=== PATIENT | male | born 1985 | race Caucasian/White ===

== ENCOUNTER 2018-07-29 23:32 | Inpatient (IN) | payer OTHER ==
--- NOTE | 2018-07-29 23:50 | HP ---
CIWA Score Nausea/Vomitin-No Nausea/No Vomiting Muscle Tremors: None Anxiety: 4-Mod. Anxious/Guarded Agitation: 1-Slight > Activity Paroxysmal Sweats: No Perspiration Orientation: 2-Disoriented Date<2 days Tacttile Disturbances: 2-Mild Itch/Numbness/Burn Auditory Disturbances: 0-None Visual Disturbances: 3-Moderate Sensitivity Headache: 0-None Present CIWA-Ar Total Score: 12 - Admission Criteria OASAS Guidelines: Admission for Medically Managed Detox: Requires at least one of the followin. CIWA greater than 12 2. Seizures within the past 24 hours 3. Delirium tremens within the past 24 hours 4. Hallucinations within the past 24 hours 5. Acute intervention needed for co occurring medical disorder 6. Acute intervention needed for co occurring psychiatric disorder 7. Severe withdrawal that cannot be handled at a lower level of care (continued vomiting, continued diarrhea, abnormal vital signs) requiring intravenous medication and/or fluids 8. Patient presents the following: CIWA greater than 12, Acute intervention needed for co-occurring med or psych disorder Admission Criteria Met: Admission criteria met Admission ROS [facility] Chief Complaint: c/o withdrawal sx's. seeking detox Allergies/Adverse Reactions: Allergies Allergy/AdvReac Type Severity Reaction Status Date / Time No Known Allergies Allergy Verified 07/29/18 23:45 History of Present Illness: 32 Y.O. MALE WITH POLY SYBSTANCE ABUSE INCLUDING BENZO ON METHADONE MAINTENANCE HERE FOR DETOX. CLIENT WAS REFERRED BY HIS METHADONE PROGRAM ESTRELLITA ALMODOVAR. HE REPORTS HE IS ON METHADONE 130 MG WITH BLOCKING DOSE OF 150 MG. LDM TODAY ALL PENDING VERIFICATION. THIS IS HIS FIRST ADMISSION. REPORTS LAST DETOX ANY YEARS AGO. PRESENTS TODAY WITH C/O WORSENING WITHDRAWAL SX'S. CIWA 12. DENIES ANY SIGNIFICANT PERIOD OF CLEAN TIME. PMHX- HEPC NO TXMENT, ANXIETY. DENIES SI/HI, AVH. REPORTS HX/O SEIZURE R/T BENZO WITHDRAWAL LAST EPISODE " YEARS AGO". LIVES WITH GIRLFRIEND, UNEMPLOYED, OPEN CASE Exam Limitations: No Limitations - Ebola screening Have you traveled outside of the country in the last 21 days: No (N) Have you had contact with anyone from an Ebola affected area: No Do you have a fever: No - Review of Systems Constitutional: Loss of Appetite, Changes in sleep EENT: reports: Dental Problems (MISSING TEETH) Respiratory: reports: No Symptoms reported Cardiac: reports: No Symptoms Reported GI: reports: Nausea, Poor Appetite, Poor Fluid Intake : reports: No Symptoms Reported Musculoskeletal: reports: Back Pain, Joint Pain Integumentary: reports: Sweating Neuro: reports: Seizure Endocrine: reports: No Symptoms Reported Hematology: reports: No Symptoms Reported Psychiatric: reports: Anxious, Depressed, other (A/O X2) Other Systems: Reviewed and Negative Patient History - Patient Medical History Hx Anemia: No Hx Asthma: No Hx Chronic Obstructive Pulmonary Disease (COPD): No Hx Cancer: No Hx Cardiac Disorders: No Hx Congestive Heart Failure: No Hx Hypertension: No Hx Hypercholesterolemia: No Hx Pacemaker: No HX Cerebrovascular Accident: No Hx Seizures: Yes (R/T BENZO WITHDRAWAL) Hx Dementia: No Hx Diabetes: No Hx Gastrointestinal Disorders: No Hx Liver Disease: Yes (HEP C) Hx Genitourinary Disorders: No Hx Sexually Transmitted Disorders: No Hx Renal Disease (ESRD): No Hx Thyroid Disease: No Hx Human Immunodeficiency Virus (HIV): No Hx Hepatitis C: Yes Hx Depression: No Hx Suicide Attempt: No Hx Bipolar Disorder: No Hx Schizophrenia: No Other Medical History: ANXIETY - Patient Surgical History Past Surgical History: Yes Hx Appendectomy: Yes Anesthesia Reaction: No - PPD History Previous Implant?: Yes Documented Results: Negative w/o proof Implanted On Prior R Admission?: No PPD to be Administered?: Yes - Smoking Cessation Smoking history: Current every day smoker Have you smoked in the past 12 months: Yes Aproximately how many cigarettes per day: 10 Cigars Per Day: 0 Hx Chewing Tobacco Use: No Initiated information on smoking cessation: Yes 'Breaking Loose' booklet given: 07/29/18 - Substance & Tx. History Hx Alcohol Use: Yes Hx Substance Use: Yes Substance Use Type: Alcohol, Cocaine, Heroin, Marijuana, Prescribed (METHADONE) , Tranquilizers (XANAX) Hx Substance Use Treatment: Yes ([facility]) - Substances Abused VODKA/LIQUOR/BEER Route: Oral Frequency: Daily Amount used: /-BEERS Age of first use: 14 Date of Last Use: 07/29/18 XANAX Route: Oral Frequency: Daily Amount used: 10 MG Age of first use: 17 Date of Last Use: 07/28/18 THC Route: Smoking Frequency: Daily Amount used: 3 BLUNTS Age of first use: 12 Date of Last Use: 07/28/18 HEROIN Route: Injection Frequency: 1-3 times last 30 days Amount used: 1 GM Age of first use: 24 Date of Last Use: 07/28/18 COCAINE Route: Injection Frequency: Daily Amount used: 3 GMS Age of first use: 16 Date of Last Use: 07/29/18 Family Disease History - Family Disease History Family Disease History: CA: Father (DRUG/ALCOHOL/ LUNG-), Other: Father , Mother (DRUGL ALCOHOL/ ANXIETY), Sister (DRUG/ALCOHOL) Admission Physical Exam [facility] - Physical General Appearance: Yes: Appropriately Dressed, Anxious HEENTM: Yes: EOMI, Normocephalic, Normal Voice, FARIDA, Pharynx Normal, Other ( POOR DENTITION MISSING TEETH) Respiratory: Yes: Chest Non-Tender, Lungs Clear, Normal Breath Sounds, No Respiratory Distress, No Accessory Muscle Use Neck: Yes: No masses,lesions,Nodules, Supple, Trachea in good position Breast: Yes: Breast Exam Deferred Cardiology: Yes: Regular Rhythm, Regular Rate, S1, S2 Abdominal: Yes: Non Tender, Soft, Increased Bowel Sounds Genitourinary: Yes: Within Normal Limits (NO C/O) Back: Yes: Normal Inspection Musculoskeletal: Yes: full range of Motion, Gait Steady Extremities: Yes: Normal Capillary Refill, Normal Range of Motion, Non-Tender Neurological: Yes: Alert, Motor Strength 5/5, Confused (ABOUT DATE) Integumentary: Yes: Warm Lymphatic: Yes: Within Normal Limits - Diagnostic (1) Sedative, hypnotic or anxiolytic dependence with withdrawal, uncomplicated Current Visit: Yes Status: Acute (2) Alcohol dependence with uncomplicated withdrawal Current Visit: Yes Status: Acute (3) Cannabis abuse, uncomplicated Current Visit: Yes Status: Acute (4) Cocaine abuse, uncomplicated Current Visit: Yes Status: Acute (5) Uncomplicated opioid abuse Current Visit: Yes Status: Acute (6) Methadone maintenance therapy patient Current Visit: Yes Status: Chronic (7) Nicotine dependence Current Visit: Yes Status: Chronic Qualifiers: Nicotine product type: cigarettes Substance use status: uncomplicated Qualified Code(s): F17.210 - Nicotine dependence, cigarettes, uncomplicated (8) Substance induced mood disorder Current Visit: Yes Status: Chronic (9) Insomnia Current Visit: Yes Status: Chronic Qualifiers: Insomnia type: drug-induced Qualified Code(s): F19.982 - Other psychoactive substance use, unspecified with psychoactive substance-induced sleep disorder Cleared for Admission S - Detox or Rehab [facility] Level of Care: Medically Managed Detox Regimen/Protocol: Valium Claeared for Rehab Admission: No BHS Breath Alcohol Content Breath Alcohol Content: 0 Vital Signs - Vital Signs Vital Signs Refused: No Temperature: 96.8 F Temperature Source: Oral Pulse Rate: 64 Respiratory Rate: 18 Blood Pressure: 88/53 BP Location: Left Arm Blood Pressure Position: Sitting - Height Height: 5 ft 8 in - Weight Weight: 68.946 kg Weight Measurement Method: Standing Scale Body Mass Index (BMI): 23.1 - Bowel Function Bowel Movement: No Urine Drug Screen - Test Device Lot Number: [id number] Expiration Date: 03/09/20 - Control Is Test Valid: Yes - Results Drug Screen Negative: No Urine Drug Screen Results: THC-Marijuana, DONOVAN-Cocaine, OPI-Opiates, BZO- Benzodiazepines, MTD-Methadone, FEN-Fentanyl Inpatient Rehab Admission - Rehab Decision to Admit Inpatient rehab admission?: No
[2018-07-30 00:02] VITALS: BMI 23.1
[2018-07-30] MEDS ORDERED: MENTHOL/PHENOL 1 EACH UD MM PRN (00:06)
[2018-07-30] MEDS ORDERED: diazePAM 5 MG TABLET PO ONE (00:06)
[2018-07-30] MEDS ORDERED: MAGNESIUM HYDROX 2400MG/30ML ORAL SUSPENSION 30 ML CUP PO PRN (00:06)
[2018-07-30] MEDS ORDERED: IBUPROFEN 400 MG TABLET (FP) PO PRN (00:06)
[2018-07-30] MEDS ORDERED: LOPERAMIDE HCL 2 MG CAPSULE PO PRN (00:06)
[2018-07-30] MEDS ORDERED: MAGNESIUM CITRATE 300 ML BOTTLE PO PRN (00:06)
[2018-07-30] MEDS ORDERED: MAG HYDROX/AL HYDROX/SIMETH 30 ML UNIT-DOSE CUP PO PRN (00:06)
[2018-07-30] MEDS ORDERED: guaiFENesin/D-METHORPHAN HB 10 ML UNIT-DOSE CUPS PO PRN (00:06)
[2018-07-30] MEDS ORDERED: P-EPHED 60MG/TRIPROLIDI 2.5MG TABLET PO PRN (00:06)
[2018-07-30] MEDS ORDERED: ACETAMINOPHEN 325 MG TABLET (FP) PO PRN (00:06)
[2018-07-30] MEDS: diazePAM 5 MG TABLET PO SCH ×3 (05:36→22:09)
[2018-07-30] MEDS ORDERED: METHADONE HCL 10 MG TABLET PO ONE (09:36)
[2018-07-30] MEDS ORDERED: METHADONE HCL 40 MG DISPERSABLE TABLET ONE (09:59)
[2018-07-30] MEDS ORDERED: METHADONE HCL 10 MG TABLET ONE (09:59)
[2018-07-30] MEDS ORDERED: METHADONE 120 MG, METHADONE 10 MG PO ONE (10:00)
[2018-07-30] MEDS ORDERED: NICOTINE 14 MG/24 HOURS TOPICAL PATCH TD SCH (10:00)
[2018-07-30] MEDS: diazePAM 5 MG TABLET PO PRN (10:09)
[2018-07-30] MEDS: PRENATAL VITAMINS W/ FOLIC ACID TABLET (FP) PO SCH (10:09)
[2018-07-30] MEDS: NICOTINE POLACRILEX 2 MG GUM BC PRN ×5 (10:12→22:10)
--- NOTE | 2018-07-30 10:57 | PN ---
S CIWA - CIWA Score Nausea/Vomitin-No Nausea/No Vomiting Muscle Tremors: 3 Anxiety: 4-Mod. Anxious/Guarded Agitation: 3 Paroxysmal Sweats: 3 Orientation: 0-Oriented Tacttile Disturbances: 0-None Auditory Disturbances: 0-None Visual Disturbances: 0-None Headache: 0-None Present CIWA-Ar Total Score: 13 BHS Progress Note (SOAP) Subjective: sweats irritable body aches agitation interrupted sleep Objective: 07/30/18 10:43 Vital Signs Temperature 97.5 F L 07/30/18 09:21 Pulse Rate 70 07/30/18 09:21 Respiratory Rate 16 07/30/18 09:21 Blood Pressure 117/68 07/30/18 09:21 O2 Sat by Pulse Oximetry (%) labs pending aaox3 ambulating no acute distress Assessment: 07/30/18 10:43 withdrawal sx Plan: continue detox increase fluids
[2018-07-30] MEDS: NICOTINE 21 MG/24 HOURS TOPICAL PATCH TD SCH (18:38)
[2018-07-30] MEDS: MELATONIN 5 MG TABLETS PO PRN (22:09)
[2018-07-30] MEDS: THIAMINE HCL 100 MG TABLET (FP) PO SCH (22:09)
[2018-07-31] MEDS ORDERED: METHADONE HCL 40 MG DISPERSABLE TABLET ONE (05:03)
[2018-07-31] MEDS ORDERED: METHADONE HCL 10 MG TABLET ONE (05:04)
[2018-07-31] MEDS: diazePAM 5 MG TABLET PO SCH ×3 (05:41→22:59)
[2018-07-31] MEDS ORDERED: METHADONE 120 MG, METHADONE 20 MG PO ONE (06:00)
[2018-07-31] MEDS ORDERED: METHADONE HCL 40 MG DISPERSABLE TABLET PO ONE (06:00)
[2018-07-31] MEDS: NICOTINE POLACRILEX 2 MG GUM BC PRN ×2 (07:11→21:04)
[2018-07-31] MEDS: NICOTINE 21 MG/24 HOURS TOPICAL PATCH TD SCH (11:02)
[2018-07-31] MEDS: PRENATAL VITAMINS W/ FOLIC ACID TABLET (FP) PO SCH (11:02)
[2018-07-31 11:03] LABS: HEMOGLOBIN 13.4 GM/dL (11.7-16.9); MCH 29.8 pg (25.7-33.7); MCHC 33.6 g/dl (32.0-35.9); MEAN CELL VOLUME 88.7 fl (80-96); MEAN PLT VOLUME 8.5 fl (7.5-11.1); PLATELET COUNT 291 K/MM3 (134-434); RBC 4.51 M/mm3 (4.00-5.60); RDW 13.5 % (11.9-15.9); WHITE BLOOD COUNT 10.2 K/mm3 (4.0-10.0)
[2018-07-31 11:38] LABS: ALBUMIN 3.4 g/dl (3.4-5.0); ALK PHOS 60 U/L (45-117); ANION GAP 3 MMOL/L (8-16); BILIRUBIN,TOTAL 0.2 mg/dL (0.2-1); BLOOD UREA NITROGEN 9 mg/dL (7-18); CHLORIDE 103 mmol/L (98-107); CO2 32 mmol/L (21-32); CREATININE 0.8 mg/dL (0.55-1.3); GLUCOSE,RANDOM 78 mg/dL (74-106); POTASSIUM 4.5 mmol/L (3.5-5.1); SGOT/AST 28 U/L (15-37); SGPT/ALT 45 U/L (13-61); SODIUM 138 mmol/L (136-145); TOT PROT 6.3 g/dl (6.4-8.2)
--- NOTE | 2018-07-31 15:00 | PN ---
S CIWA - CIWA Score Nausea/Vomitin-No Nausea/No Vomiting Muscle Tremors: 3 Anxiety: 3 Agitation: 2 Paroxysmal Sweats: No Perspiration Orientation: 0-Oriented Tacttile Disturbances: 2-Mild Itch/Numbness/Burn Auditory Disturbances: 0-None Visual Disturbances: 2-Mild Sensitivity Headache: 0-None Present CIWA-Ar Total Score: 12 BHS Progress Note (SOAP) Subjective: Fatigue, Tremors, Body Aches. Objective: PATIENT A & O X 2 (UNCERTAIN ABOUT CURRENT DAY / DATE). PATIENT OBSERVED AMBULATING ON UNIT. IN NO ACUTE DISTRESS. 07/31/18 15:00 Vital Signs Temperature 99.1 F 07/31/18 09:21 Pulse Rate 61 07/31/18 09:21 Respiratory Rate 16 07/31/18 09:21 Blood Pressure 124/72 07/31/18 09:21 O2 Sat by Pulse Oximetry (%) Laboratory Tests 07/31/18 07/31/18 07/31/18 06:00 08:38 08:38 WBC 10.2 H RBC 4.51 Hgb 13.4 Hct 40.0 MCV 88.7 MCH 29.8 MCHC 33.6 RDW 13.5 Plt Count 291 MPV 8.5 Sodium 138 Potassium 4.5 Chloride 103 Carbon Dioxide 32 Anion Gap 3 L BUN 9 Creatinine 0.8 Creat Clearance w eGFR > 60 Random Glucose 78 Calcium 9.0 Total Bilirubin 0.2 AST 28 ALT 45 Alkaline Phosphatase 60 Total Protein 6.3 L Albumin 3.4 RPR Titer Nonreactive LABS NOTED. UA RESULTS PENDING. Assessment: 07/31/18 15:00 WITHDRAWAL SYMPTOMS. Plan: CONTINUE DETOX. INCREASE DAILY PO FLUID INTAKE. ENCOURAGE AMBULATION.
[2018-07-31 16:59] LABS: URINE APPEARANCE CLEAR; URINE BILIRUBIN NEGATIVE (<2.0 mg/dL); URINE COLOR LTYELLOW; URINE GLUCOSE (UA) NEGATIVE (NEGATIVE); URINE KETONE NEGATIVE (NEGATIVE); URINE LEUK ESTERASE NEGATIVE (NEGATIVE); URINE NITRITE NEGATIVE (NEGATIVE); URINE PROTEIN NEGATIVE (NEGATIVE); URINE UROBILINOGEN NEGATIVE mg/dL (0.2-1.0)
[2018-07-31] MEDS: diazePAM 5 MG TABLET PO PRN (18:16)
[2018-07-31] MEDS: THIAMINE HCL 100 MG TABLET (FP) PO SCH (22:59)
[2018-08-01] MEDS ORDERED: METHADONE HCL 40 MG DISPERSABLE TABLET ONE (04:42)
[2018-08-01] MEDS ORDERED: METHADONE HCL 10 MG TABLET ONE (04:42)
[2018-08-01] MEDS: METHADONE 120 MG, METHADONE 30 MG PO SCH (05:42)
[2018-08-01] MEDS: diazePAM 5 MG TABLET PO PRN ×2 (05:45→17:32)
[2018-08-01] MEDS ORDERED: METHADONE HCL 10 MG TABLET PO SCH (06:00)
[2018-08-01] MEDS: NICOTINE 21 MG/24 HOURS TOPICAL PATCH TD SCH (10:31)
[2018-08-01] MEDS: NICOTINE POLACRILEX 2 MG GUM BC PRN ×3 (10:31→21:33)
[2018-08-01] MEDS: PRENATAL VITAMINS W/ FOLIC ACID TABLET (FP) PO SCH (10:31)
[2018-08-01] MEDS: diazePAM 5 MG TABLET PO SCH ×2 (10:34→22:13)
--- NOTE | 2018-08-01 13:23 | PN ---
BHS Progress Note (SOAP) Subjective: sweats Objective: 08/01/18 13:22 Vital Signs Temperature 97.9 F 08/01/18 08:52 Pulse Rate 62 08/01/18 08:52 Respiratory Rate 18 08/01/18 08:52 Blood Pressure 125/64 08/01/18 08:52 O2 Sat by Pulse Oximetry (%) Laboratory Tests 07/31/18 07/31/18 07/31/18 06:00 08:38 08:38 WBC 10.2 H RBC 4.51 Hgb 13.4 Hct 40.0 MCV 88.7 MCH 29.8 MCHC 33.6 RDW 13.5 Plt Count 291 MPV 8.5 Sodium 138 Potassium 4.5 Chloride 103 Carbon Dioxide 32 Anion Gap 3 L BUN 9 Creatinine 0.8 Creat Clearance w eGFR > 60 Random Glucose 78 Calcium 9.0 Total Bilirubin 0.2 AST 28 ALT 45 Alkaline Phosphatase 60 Total Protein 6.3 L Albumin 3.4 Urine Color Urine Appearance Urine pH Ur Specific [place] Urine Protein Urine Glucose (UA) Urine Ketones Urine Blood Urine Nitrite Urine Bilirubin Urine Urobilinogen Ur Leukocyte Esterase RPR Titer Nonreactive 07/31/18 11:15 WBC RBC Hgb Hct MCV MCH MCHC RDW Plt Count MPV Sodium Potassium Chloride Carbon Dioxide Anion Gap BUN Creatinine Creat Clearance w eGFR Random Glucose Calcium Total Bilirubin AST ALT Alkaline Phosphatase Total Protein Albumin Urine Color Ltyellow Urine Appearance Clear Urine pH 5.0 Ur Specific [place] 1.015 Urine Protein Negative Urine Glucose (UA) Negative Urine Ketones Negative Urine Blood Negative Urine Nitrite Negative Urine Bilirubin Negative Urine Urobilinogen Negative Ur Leukocyte Esterase Negative RPR Titer pt aox3 , in nad ambulating Assessment: 08/01/18 13:23 withdrawal sx's Plan: cont. detox increase fluids d/c in am.
[2018-08-01] MEDS: THIAMINE HCL 100 MG TABLET (FP) PO SCH (22:14)
[2018-08-01] MEDS: MELATONIN 5 MG TABLETS PO PRN (22:14)
[2018-08-02] MEDS: METHADONE 120 MG, METHADONE 30 MG PO SCH (05:59)
[2018-08-02] MEDS ORDERED: METHADONE HCL 10 MG TABLET ONE (05:59)
[2018-08-02] MEDS ORDERED: METHADONE HCL 40 MG DISPERSABLE TABLET ONE (05:59)
[2018-08-02] MEDS: NICOTINE POLACRILEX 2 MG GUM BC PRN (06:04)
[2018-08-02 06:36] VITALS: BP 116/72; PULSE 53; TEMP 96.4
--- NOTE | 2018-08-02 15:59 | DS ---
[facility] Detox Discharge Summary Admission Date: 07/30/18 Discharge Date: 08/02/18 - History Present History: Alcohol Dependence, Sedative Dependence Additional Comments: PT WAS NOT ENCOUNTERED BY THIS RN CLINICAL DOCUMENTATION SPECIALIST BEFORE EXITING. Pertinent Past History: SEIZURE DISORDER R/T BENZO HEP C - Physical Exam Results Vital Signs: Vital Signs Temperature 96.4 F L 08/02/18 06:00 Pulse Rate 53 L 08/02/18 06:00 Respiratory Rate 18 08/02/18 06:00 Blood Pressure 116/72 08/02/18 06:00 O2 Sat by Pulse Oximetry (%) Pertinent Admission Physical Exam Findings: WITHDRAWAL SX Laboratory Tests 07/31/18 07/31/18 07/31/18 06:00 08:38 08:38 WBC 10.2 H RBC 4.51 Hgb 13.4 Hct 40.0 MCV 88.7 MCH 29.8 MCHC 33.6 RDW 13.5 Plt Count 291 MPV 8.5 Sodium 138 Potassium 4.5 Chloride 103 Carbon Dioxide 32 Anion Gap 3 L BUN 9 Creatinine 0.8 Creat Clearance w eGFR > 60 Random Glucose 78 Calcium 9.0 Total Bilirubin 0.2 AST 28 ALT 45 Alkaline Phosphatase 60 Total Protein 6.3 L Albumin 3.4 Urine Color Urine Appearance Urine pH Ur Specific [place] Urine Protein Urine Glucose (UA) Urine Ketones Urine Blood Urine Nitrite Urine Bilirubin Urine Urobilinogen Ur Leukocyte Esterase RPR Titer Nonreactive 07/31/18 11:15 WBC RBC Hgb Hct MCV MCH MCHC RDW Plt Count MPV Sodium Potassium Chloride Carbon Dioxide Anion Gap BUN Creatinine Creat Clearance w eGFR Random Glucose Calcium Total Bilirubin AST ALT Alkaline Phosphatase Total Protein Albumin Urine Color Ltyellow Urine Appearance Clear Urine pH 5.0 Ur Specific [place] 1.015 Urine Protein Negative Urine Glucose (UA) Negative Urine Ketones Negative Urine Blood Negative Urine Nitrite Negative Urine Bilirubin Negative Urine Urobilinogen Negative Ur Leukocyte Esterase Negative RPR Titer - Treatment Hospital Course: Detox Protocol Followed, Detoxed Safely, Responded well, Discharged Condition Good (PER NURSES NOTES) - Diagnosis (1) Alcohol dependence with uncomplicated withdrawal Status: Acute (2) Cannabis abuse, uncomplicated Status: Acute (3) Cocaine abuse, uncomplicated Status: Acute (4) Sedative, hypnotic or anxiolytic dependence with withdrawal, uncomplicated Status: Acute (5) Uncomplicated opioid abuse Status: Acute (6) Methadone maintenance therapy patient Status: Chronic (7) Nicotine dependence Status: Chronic Qualifiers: Nicotine product type: cigarettes Substance use status: in withdrawal Qualified Code(s): F17.213 - Nicotine dependence, cigarettes, with withdrawal - AMA Did Patient Leave Against Medical Advice: No
[2018-08-03] MEDS ORDERED: diazePAM 5 MG TABLET PO SCH (10:00)
== END 2018-08-02 08:38 | disposition home or self-care (01) | DRG 773 ==
LOC: YASAS 23:32 → Y6N 07-30 00:07
PROVIDERS: ADMIT Surgery; ATTEND Surgery
PROC: HZ2ZZZZ Detoxification Services for Substance Abuse Treatment (ICD-10-PCS; principal; 2018-07-30)
DX: F10.230 Alcohol dependence with withdrawal, uncomplicated (principal); F11.20 Opioid dependence, uncomplicated; F13.230 Sedative, hypnotic or anxiolytic dependence with withdrawal, uncomplicated; F14.10 Cocaine abuse, uncomplicated; F12.10 Cannabis abuse, uncomplicated; F17.210 Nicotine dependence, cigarettes, uncomplicated; F19.24 Other psychoactive substance dependence with psychoactive substance-induced mood disorder; F19.282 Other psychoactive substance dependence with psychoactive substance-induced sleep disorder; B18.2 Chronic viral hepatitis C; Z86.69 Personal history of other diseases of the nervous system and sense organs
CPT/HCPCS: 36415; 80053; 81003; 85027; 86593

== ENCOUNTER 2021-09-13 17:16 | Inpatient (IN) | payer OTHER ==
[2021-09-13 20:23] VITALS: BMI 24.7
[2021-09-13] MEDS ORDERED: ACETAMINOPHEN 325 MG TABLET (FP) PO PRN (23:28)
[2021-09-13] MEDS ORDERED: LOPERAMIDE HCL 2 MG CAPSULE PO PRN (23:28)
[2021-09-13] MEDS ORDERED: MAG HYDROX/AL HYDROX/SIMETH 30 ML UNIT-DOSE CUP PO PRN (23:28)
[2021-09-13] MEDS ORDERED: guaiFENesin 200 MG/10 ML 10 ML UNIT-DOSE CUPS PO PRN (23:28)
[2021-09-13] MEDS ORDERED: P-EPHED 60MG/TRIPROLIDI 2.5MG TABLET PO PRN (23:28)
[2021-09-13] MEDS ORDERED: MAGNESIUM CITRATE 300 ML BOTTLE PO PRN (23:28)
[2021-09-13] MEDS ORDERED: MAGNESIUM HYDROX 2400MG/30ML ORAL SUSPENSION 30 ML CUP PO PRN (23:28)
[2021-09-14] MEDS ORDERED: TUBERCULIN PPD 5 TU/0.1ML VIAL ID ONE ×2 (05:43→06:56)
[2021-09-14] MEDS: MELATONIN 5 MG TABLETS PO SCH ×2 (05:51→21:07)
[2021-09-14] MEDS ORDERED: methaDONE HCL 10 MG TABLET PO ONE (08:29)
[2021-09-14] MEDS ORDERED: methaDONE HCL 40 MG DISPERSABLE TABLET ONE (09:17)
[2021-09-14] MEDS ORDERED: methaDONE HCL 10 MG TABLET ONE (09:17)
[2021-09-14] MEDS: NICOTINE 14 MG/24 HOURS TOPICAL PATCH TD SCH (09:20)
[2021-09-14] MEDS: PRENATAL VITAMINS W/ FOLIC ACID TABLET (FP) PO SCH (09:20)
[2021-09-14 09:29] LABS: HEMATOCRIT 34.4 % (35.4-49); MCH 24.9 pg (25.7-33.7); MCHC 32.1 g/dl (32.0-35.9); MEAN CELL VOLUME 77.4 fl (80-96); MEAN PLT VOLUME 8.4 fl (7.5-11.1); PLATELET COUNT 230 10^3/uL (134-434); RBC 4.44 M/mm3 (4.00-5.60); WHITE BLOOD COUNT 7.4 K/mm3 (4.0-10.0)
[2021-09-14 09:40] LABS: ALBUMIN 2.8 g/dl (3.4-5.0); BILIRUBIN,TOTAL 0.2 mg/dL (0.2-1); TOT PROT 6.4 g/dl (6.4-8.2)
[2021-09-14 09:42] LABS: BLOOD UREA NITROGEN 15.2 mg/dL (7-18); CALCIUM 8.5 mg/dL (8.5-10.1)
[2021-09-14 09:45] LABS: CREATININE 0.8 mg/dL (0.55-1.3)
[2021-09-14] MEDS ORDERED: NICOTINE 10 MG CARTRIDGE (INHALER) IH SCH (14:00)
[2021-09-14] MEDS: THIAMINE HCL 100 MG TABLET (FP) PO SCH (21:07)
[2021-09-14] MEDS: NICOTINE POLACRILEX 2 MG GUM BC PRN (21:09)
[2021-09-15] MEDS ORDERED: methaDONE HCL 40 MG DISPERSABLE TABLET ONE (04:02)
[2021-09-15] MEDS ORDERED: methaDONE HCL 10 MG TABLET ONE (04:02)
[2021-09-15] MEDS ORDERED: methaDONE HCL 10 MG TABLET PO SCH (06:00)
[2021-09-15] MEDS: NICOTINE 14 MG/24 HOURS TOPICAL PATCH TD SCH (10:27)
[2021-09-15] MEDS: PRENATAL VITAMINS W/ FOLIC ACID TABLET (FP) PO SCH (10:27)
[2021-09-15] MEDS: MELATONIN 5 MG TABLETS PO SCH (21:19)
[2021-09-15] MEDS: THIAMINE HCL 100 MG TABLET (FP) PO SCH (21:19)
[2021-09-16] MEDS ORDERED: methaDONE HCL 10 MG TABLET ONE (04:12)
[2021-09-16] MEDS ORDERED: methaDONE HCL 40 MG DISPERSABLE TABLET ONE (04:12)
[2021-09-16] MEDS: PRENATAL VITAMINS W/ FOLIC ACID TABLET (FP) PO SCH (09:47)
[2021-09-16] MEDS: NICOTINE 14 MG/24 HOURS TOPICAL PATCH TD SCH (09:47)
[2021-09-16] MEDS: NICOTINE 10 MG CARTRIDGE (INHALER) IH PRN (09:48)
[2021-09-16 14:36] LABS: URINE APPEARANCE CLEAR; URINE BILIRUBIN NEGATIVE (NEGATIVE); URINE COLOR YELLOW; URINE GLUCOSE (UA) NEGATIVE (NEGATIVE); URINE KETONE NEGATIVE (NEGATIVE); URINE LEUK ESTERASE NEGATIVE (NEGATIVE); URINE NITRITE NEGATIVE (NEGATIVE); URINE PROTEIN NEGATIVE (NEGATIVE); URINE UROBILINOGEN 0.2 mg/dL (0.2-1.0)
[2021-09-16] MEDS: THIAMINE HCL 100 MG TABLET (FP) PO SCH (21:29)
[2021-09-16] MEDS: MELATONIN 5 MG TABLETS PO SCH (21:29)
[2021-09-17] MEDS ORDERED: methaDONE HCL 10 MG TABLET ONE (04:04)
[2021-09-17] MEDS ORDERED: methaDONE HCL 40 MG DISPERSABLE TABLET ONE (04:04)
[2021-09-17] MEDS: NICOTINE 14 MG/24 HOURS TOPICAL PATCH TD SCH (10:13)
[2021-09-17] MEDS: PRENATAL VITAMINS W/ FOLIC ACID TABLET (FP) PO SCH (10:13)
[2021-09-17] MEDS: NICOTINE 10 MG CARTRIDGE (INHALER) IH PRN ×2 (10:18→21:38)
[2021-09-17 16:07] LABS: SARS-CoV-2 NAA Not Detected (Not Detected)
[2021-09-17] MEDS: MELATONIN 5 MG TABLETS PO SCH (21:35)
[2021-09-17] MEDS: THIAMINE HCL 100 MG TABLET (FP) PO SCH (21:35)
[2021-09-17] MEDS: NICOTINE POLACRILEX 2 MG GUM BC PRN (21:38)
[2021-09-18] MEDS ORDERED: methaDONE HCL 10 MG TABLET ONE (04:06)
[2021-09-18] MEDS ORDERED: methaDONE HCL 40 MG DISPERSABLE TABLET ONE (04:07)
[2021-09-18] MEDS: NICOTINE 10 MG CARTRIDGE (INHALER) IH PRN ×3 (06:02→21:28)
[2021-09-18] MEDS: NICOTINE 14 MG/24 HOURS TOPICAL PATCH TD SCH (10:17)
[2021-09-18] MEDS: PRENATAL VITAMINS W/ FOLIC ACID TABLET (FP) PO SCH (10:17)
[2021-09-18] MEDS: THIAMINE HCL 100 MG TABLET (FP) PO SCH (21:28)
[2021-09-18] MEDS: MELATONIN 5 MG TABLETS PO SCH (21:28)
[2021-09-19] MEDS ORDERED: methaDONE HCL 40 MG DISPERSABLE TABLET ONE (02:12)
[2021-09-19] MEDS ORDERED: methaDONE HCL 10 MG TABLET ONE (02:12)
[2021-09-19] MEDS: NICOTINE 10 MG CARTRIDGE (INHALER) IH PRN ×3 (06:03→21:09)
[2021-09-19] MEDS: PRENATAL VITAMINS W/ FOLIC ACID TABLET (FP) PO SCH (09:50)
[2021-09-19] MEDS: NICOTINE 14 MG/24 HOURS TOPICAL PATCH TD SCH (09:50)
[2021-09-19] MEDS: THIAMINE HCL 100 MG TABLET (FP) PO SCH (21:09)
[2021-09-19] MEDS: MELATONIN 5 MG TABLETS PO SCH (21:09)
[2021-09-19] MEDS: IBUPROFEN 400 MG TABLET (FP) PO PRN (21:10)
[2021-09-20] MEDS ORDERED: methaDONE HCL 40 MG DISPERSABLE TABLET ONE (04:07)
[2021-09-20] MEDS ORDERED: methaDONE HCL 10 MG TABLET ONE (04:07)
[2021-09-20] MEDS: NICOTINE POLACRILEX 2 MG GUM BC PRN (05:47)
[2021-09-20] MEDS: NICOTINE 10 MG CARTRIDGE (INHALER) IH PRN ×3 (05:47→21:18)
[2021-09-20] MEDS: NICOTINE 14 MG/24 HOURS TOPICAL PATCH TD SCH (10:19)
[2021-09-20] MEDS: PRENATAL VITAMINS W/ FOLIC ACID TABLET (FP) PO SCH (10:19)
[2021-09-20] MEDS: MELATONIN 5 MG TABLETS PO SCH (21:18)
[2021-09-20] MEDS: THIAMINE HCL 100 MG TABLET (FP) PO SCH (21:18)
[2021-09-21] MEDS: NICOTINE POLACRILEX 2 MG GUM BC PRN ×2 (06:00→17:48)
[2021-09-21] MEDS ORDERED: methaDONE HCL 40 MG DISPERSABLE TABLET ONE (06:00)
[2021-09-21] MEDS ORDERED: methaDONE HCL 10 MG TABLET ONE (06:00)
[2021-09-21] MEDS: NICOTINE 10 MG CARTRIDGE (INHALER) IH PRN ×4 (06:02→21:17)
[2021-09-21] MEDS: PRENATAL VITAMINS W/ FOLIC ACID TABLET (FP) PO SCH (09:58)
[2021-09-21] MEDS: NICOTINE 14 MG/24 HOURS TOPICAL PATCH TD SCH (09:58)
[2021-09-21] MEDS: THIAMINE HCL 100 MG TABLET (FP) PO SCH (21:17)
[2021-09-21] MEDS: MELATONIN 5 MG TABLETS PO SCH (21:17)
[2021-09-22] MEDS ORDERED: methaDONE HCL 10 MG TABLET ONE (04:22)
[2021-09-22] MEDS ORDERED: methaDONE HCL 40 MG DISPERSABLE TABLET ONE (04:22)
[2021-09-22] MEDS: NICOTINE 10 MG CARTRIDGE (INHALER) IH PRN ×2 (06:53→21:25)
[2021-09-22] MEDS: NICOTINE POLACRILEX 2 MG GUM BC PRN ×3 (06:54→21:26)
[2021-09-22] MEDS: PRENATAL VITAMINS W/ FOLIC ACID TABLET (FP) PO SCH (10:00)
[2021-09-22] MEDS: NICOTINE 14 MG/24 HOURS TOPICAL PATCH TD SCH (10:00)
[2021-09-22] MEDS: THIAMINE HCL 100 MG TABLET (FP) PO SCH (21:25)
[2021-09-22] MEDS: MELATONIN 5 MG TABLETS PO SCH (21:25)
[2021-09-23] MEDS ORDERED: methaDONE HCL 40 MG DISPERSABLE TABLET ONE (04:06)
[2021-09-23] MEDS ORDERED: methaDONE HCL 10 MG TABLET ONE (04:06)
[2021-09-23] MEDS: NICOTINE POLACRILEX 2 MG GUM BC PRN ×2 (06:09→21:16)
[2021-09-23] MEDS: NICOTINE 10 MG CARTRIDGE (INHALER) IH PRN ×2 (06:10→21:15)
[2021-09-23] MEDS: NICOTINE 14 MG/24 HOURS TOPICAL PATCH TD SCH (09:30)
[2021-09-23] MEDS: PRENATAL VITAMINS W/ FOLIC ACID TABLET (FP) PO SCH (09:30)
[2021-09-23] MEDS: MELATONIN 5 MG TABLETS PO SCH (21:14)
[2021-09-23] MEDS: THIAMINE HCL 100 MG TABLET (FP) PO SCH (21:15)
[2021-09-24] MEDS ORDERED: methaDONE HCL 10 MG TABLET ONE (05:24)
[2021-09-24] MEDS ORDERED: methaDONE HCL 40 MG DISPERSABLE TABLET ONE (05:25)
[2021-09-24] MEDS: NICOTINE POLACRILEX 2 MG GUM BC PRN ×2 (06:39→21:25)
[2021-09-24] MEDS: PRENATAL VITAMINS W/ FOLIC ACID TABLET (FP) PO SCH (09:27)
[2021-09-24] MEDS: NICOTINE 14 MG/24 HOURS TOPICAL PATCH TD SCH (09:27)
[2021-09-24] MEDS: NICOTINE 10 MG CARTRIDGE (INHALER) IH PRN ×2 (09:29→21:25)
[2021-09-24] MEDS: THIAMINE HCL 100 MG TABLET (FP) PO SCH (21:25)
[2021-09-24] MEDS: MELATONIN 5 MG TABLETS PO SCH (21:25)
[2021-09-25] MEDS ORDERED: methaDONE HCL 40 MG DISPERSABLE TABLET ONE (04:05)
[2021-09-25] MEDS ORDERED: methaDONE HCL 10 MG TABLET ONE (04:05)
[2021-09-25] MEDS: NICOTINE POLACRILEX 2 MG GUM BC PRN ×3 (06:03→21:37)
[2021-09-25] MEDS: PRENATAL VITAMINS W/ FOLIC ACID TABLET (FP) PO SCH (10:19)
[2021-09-25] MEDS: NICOTINE 14 MG/24 HOURS TOPICAL PATCH TD SCH (10:19)
[2021-09-25] MEDS: MELATONIN 5 MG TABLETS PO SCH (21:36)
[2021-09-25] MEDS: NICOTINE 10 MG CARTRIDGE (INHALER) IH PRN (21:36)
[2021-09-25] MEDS: THIAMINE HCL 100 MG TABLET (FP) PO SCH (21:36)
[2021-09-26] MEDS ORDERED: methaDONE HCL 10 MG TABLET ONE (04:26)
[2021-09-26] MEDS ORDERED: methaDONE HCL 40 MG DISPERSABLE TABLET ONE (04:26)
[2021-09-26] MEDS: NICOTINE POLACRILEX 2 MG GUM BC PRN ×2 (05:54→21:18)
[2021-09-26] MEDS: NICOTINE 10 MG CARTRIDGE (INHALER) IH PRN ×3 (05:54→21:17)
[2021-09-26] MEDS: NICOTINE 14 MG/24 HOURS TOPICAL PATCH TD SCH (10:43)
[2021-09-26] MEDS: PRENATAL VITAMINS W/ FOLIC ACID TABLET (FP) PO SCH (10:43)
[2021-09-26 12:54] LABS: HIV INTERPRETATION NEGATIVE (NEGATIVE)
[2021-09-26] MEDS: MELATONIN 5 MG TABLETS PO SCH (21:16)
[2021-09-26] MEDS: THIAMINE HCL 100 MG TABLET (FP) PO SCH (21:16)
[2021-09-27] MEDS ORDERED: methaDONE HCL 40 MG DISPERSABLE TABLET ONE (04:04)
[2021-09-27] MEDS ORDERED: methaDONE HCL 10 MG TABLET ONE (04:04)
[2021-09-27] MEDS: NICOTINE POLACRILEX 2 MG GUM BC PRN ×3 (05:49→21:36)
[2021-09-27] MEDS: PRENATAL VITAMINS W/ FOLIC ACID TABLET (FP) PO SCH (10:04)
[2021-09-27] MEDS: NICOTINE 14 MG/24 HOURS TOPICAL PATCH TD SCH (10:04)
[2021-09-27] MEDS: NICOTINE 10 MG CARTRIDGE (INHALER) IH PRN (21:35)
[2021-09-27] MEDS: THIAMINE HCL 100 MG TABLET (FP) PO SCH (21:35)
[2021-09-27] MEDS: MELATONIN 5 MG TABLETS PO SCH (21:35)
[2021-09-28] MEDS ORDERED: methaDONE HCL 10 MG TABLET ONE (02:46)
[2021-09-28] MEDS ORDERED: methaDONE HCL 40 MG DISPERSABLE TABLET ONE (02:46)
[2021-09-28] MEDS: PRENATAL VITAMINS W/ FOLIC ACID TABLET (FP) PO SCH (10:11)
[2021-09-28] MEDS: NICOTINE 14 MG/24 HOURS TOPICAL PATCH TD SCH (10:11)
[2021-09-28] MEDS: NICOTINE 10 MG CARTRIDGE (INHALER) IH PRN ×2 (10:12→21:18)
[2021-09-28] MEDS: NICOTINE POLACRILEX 2 MG GUM BC PRN ×2 (10:12→21:19)
[2021-09-28] MEDS: THIAMINE HCL 100 MG TABLET (FP) PO SCH (21:18)
[2021-09-28] MEDS: MELATONIN 5 MG TABLETS PO SCH (21:18)
[2021-09-29] MEDS ORDERED: methaDONE HCL 40 MG DISPERSABLE TABLET ONE (05:24)
[2021-09-29] MEDS ORDERED: methaDONE HCL 10 MG TABLET ONE (05:24)
[2021-09-29] MEDS: NICOTINE 10 MG CARTRIDGE (INHALER) IH PRN ×2 (06:28→21:27)
[2021-09-29] MEDS: NICOTINE POLACRILEX 2 MG GUM BC PRN ×3 (06:30→21:28)
[2021-09-29] MEDS: PRENATAL VITAMINS W/ FOLIC ACID TABLET (FP) PO SCH (09:40)
[2021-09-29] MEDS: NICOTINE 14 MG/24 HOURS TOPICAL PATCH TD SCH (09:40)
[2021-09-29] MEDS: MELATONIN 5 MG TABLETS PO SCH (21:27)
[2021-09-29] MEDS: THIAMINE HCL 100 MG TABLET (FP) PO SCH (21:27)
[2021-09-30] MEDS ORDERED: methaDONE HCL 40 MG DISPERSABLE TABLET ONE (03:59)
[2021-09-30] MEDS ORDERED: methaDONE HCL 10 MG TABLET ONE (03:59)
[2021-09-30] MEDS: NICOTINE 10 MG CARTRIDGE (INHALER) IH PRN ×2 (05:55→21:27)
[2021-09-30] MEDS: NICOTINE POLACRILEX 2 MG GUM BC PRN ×2 (05:55→10:06)
[2021-09-30] MEDS: NICOTINE 14 MG/24 HOURS TOPICAL PATCH TD SCH (10:04)
[2021-09-30] MEDS: PRENATAL VITAMINS W/ FOLIC ACID TABLET (FP) PO SCH (10:04)
[2021-09-30] MEDS: MELATONIN 5 MG TABLETS PO SCH (21:27)
[2021-09-30] MEDS: THIAMINE HCL 100 MG TABLET (FP) PO SCH (21:27)
[2021-10-01] MEDS ORDERED: methaDONE HCL 10 MG TABLET ONE (02:12)
[2021-10-01] MEDS ORDERED: methaDONE HCL 40 MG DISPERSABLE TABLET ONE (02:13)
[2021-10-01] MEDS: NICOTINE POLACRILEX 2 MG GUM BC PRN ×2 (06:10→21:11)
[2021-10-01] MEDS: NICOTINE 10 MG CARTRIDGE (INHALER) IH PRN ×2 (06:10→21:10)
[2021-10-01] MEDS: PRENATAL VITAMINS W/ FOLIC ACID TABLET (FP) PO SCH (10:33)
[2021-10-01] MEDS: NICOTINE 14 MG/24 HOURS TOPICAL PATCH TD SCH (10:33)
[2021-10-01] MEDS: MELATONIN 5 MG TABLETS PO SCH (21:10)
[2021-10-01] MEDS: THIAMINE HCL 100 MG TABLET (FP) PO SCH (21:10)
[2021-10-02] MEDS ORDERED: methaDONE HCL 40 MG DISPERSABLE TABLET ONE (02:07)
[2021-10-02] MEDS ORDERED: methaDONE HCL 10 MG TABLET ONE (02:07)
[2021-10-02] MEDS: NICOTINE 10 MG CARTRIDGE (INHALER) IH PRN ×2 (06:30→21:24)
[2021-10-02] MEDS: NICOTINE POLACRILEX 2 MG GUM BC PRN ×2 (06:30→21:24)
[2021-10-02] MEDS: NICOTINE 14 MG/24 HOURS TOPICAL PATCH TD SCH (10:07)
[2021-10-02] MEDS: PRENATAL VITAMINS W/ FOLIC ACID TABLET (FP) PO SCH (10:07)
[2021-10-02] MEDS: MELATONIN 5 MG TABLETS PO SCH (21:23)
[2021-10-02] MEDS: THIAMINE HCL 100 MG TABLET (FP) PO SCH (21:23)
[2021-10-03] MEDS ORDERED: methaDONE HCL 10 MG TABLET ONE (04:48)
[2021-10-03] MEDS ORDERED: methaDONE HCL 40 MG DISPERSABLE TABLET ONE (04:48)
[2021-10-03] MEDS: NICOTINE 10 MG CARTRIDGE (INHALER) IH PRN ×2 (10:13→21:08)
[2021-10-03] MEDS: PRENATAL VITAMINS W/ FOLIC ACID TABLET (FP) PO SCH (10:13)
[2021-10-03] MEDS: NICOTINE 14 MG/24 HOURS TOPICAL PATCH TD SCH (10:14)
[2021-10-03] MEDS: NICOTINE POLACRILEX 2 MG GUM BC PRN (21:08)
[2021-10-03] MEDS: THIAMINE HCL 100 MG TABLET (FP) PO SCH (21:08)
[2021-10-03] MEDS: MELATONIN 5 MG TABLETS PO SCH (21:08)
[2021-10-04] MEDS ORDERED: methaDONE HCL 10 MG TABLET ONE (02:39)
[2021-10-04] MEDS ORDERED: methaDONE HCL 40 MG DISPERSABLE TABLET ONE (02:40)
[2021-10-04] MEDS: NICOTINE 10 MG CARTRIDGE (INHALER) IH PRN ×3 (05:46→21:22)
[2021-10-04] MEDS: PRENATAL VITAMINS W/ FOLIC ACID TABLET (FP) PO SCH (10:21)
[2021-10-04] MEDS: NICOTINE 14 MG/24 HOURS TOPICAL PATCH TD SCH (10:22)
[2021-10-04] MEDS: THIAMINE HCL 100 MG TABLET (FP) PO SCH (21:21)
[2021-10-04] MEDS: MELATONIN 5 MG TABLETS PO SCH (21:21)
[2021-10-04] MEDS: NICOTINE POLACRILEX 2 MG GUM BC PRN (21:22)
[2021-10-05] MEDS ORDERED: methaDONE HCL 10 MG TABLET ONE (06:01)
[2021-10-05] MEDS ORDERED: methaDONE HCL 40 MG DISPERSABLE TABLET ONE (06:01)
[2021-10-05] MEDS: NICOTINE 10 MG CARTRIDGE (INHALER) IH PRN ×2 (10:20→21:20)
[2021-10-05] MEDS: PRENATAL VITAMINS W/ FOLIC ACID TABLET (FP) PO SCH (10:20)
[2021-10-05] MEDS: NICOTINE 14 MG/24 HOURS TOPICAL PATCH TD SCH (10:21)
[2021-10-05] MEDS: IBUPROFEN 400 MG TABLET (FP) PO PRN (17:15)
[2021-10-05] MEDS: MELATONIN 5 MG TABLETS PO SCH (21:19)
[2021-10-05] MEDS: THIAMINE HCL 100 MG TABLET (FP) PO SCH (21:19)
[2021-10-05] MEDS: NICOTINE POLACRILEX 2 MG GUM BC PRN (21:20)
[2021-10-06] MEDS ORDERED: methaDONE HCL 10 MG TABLET ONE (04:09)
[2021-10-06] MEDS ORDERED: methaDONE HCL 40 MG DISPERSABLE TABLET ONE (04:09)
[2021-10-06] MEDS: NICOTINE POLACRILEX 2 MG GUM BC PRN ×3 (06:00→21:20)
[2021-10-06] MEDS: NICOTINE 10 MG CARTRIDGE (INHALER) IH PRN ×2 (06:00→21:19)
[2021-10-06] MEDS ORDERED: methaDONE HCL 10 MG TABLET PO SCH (06:00)
[2021-10-06] MEDS: PRENATAL VITAMINS W/ FOLIC ACID TABLET (FP) PO SCH (09:52)
[2021-10-06] MEDS: NICOTINE 14 MG/24 HOURS TOPICAL PATCH TD SCH (09:52)
[2021-10-06] MEDS: MELATONIN 5 MG TABLETS PO SCH (21:19)
[2021-10-06] MEDS: THIAMINE HCL 100 MG TABLET (FP) PO SCH (21:19)
[2021-10-07] MEDS ORDERED: methaDONE HCL 40 MG DISPERSABLE TABLET ONE (04:03)
[2021-10-07] MEDS ORDERED: methaDONE HCL 10 MG TABLET ONE (04:03)
[2021-10-07] MEDS: NICOTINE POLACRILEX 2 MG GUM BC PRN ×3 (05:50→21:07)
[2021-10-07] MEDS: NICOTINE 10 MG CARTRIDGE (INHALER) IH PRN ×3 (05:50→21:07)
[2021-10-07] MEDS: NICOTINE 14 MG/24 HOURS TOPICAL PATCH TD SCH (09:53)
[2021-10-07] MEDS: PRENATAL VITAMINS W/ FOLIC ACID TABLET (FP) PO SCH (09:53)
[2021-10-07] MEDS: THIAMINE HCL 100 MG TABLET (FP) PO SCH (21:07)
[2021-10-07] MEDS: MELATONIN 5 MG TABLETS PO SCH (21:07)
[2021-10-08] MEDS ORDERED: methaDONE HCL 10 MG TABLET ONE (04:44)
[2021-10-08] MEDS ORDERED: methaDONE HCL 40 MG DISPERSABLE TABLET ONE (04:45)
[2021-10-08] MEDS: NICOTINE POLACRILEX 2 MG GUM BC PRN ×2 (06:14→21:18)
[2021-10-08] MEDS: NICOTINE 10 MG CARTRIDGE (INHALER) IH PRN ×2 (10:03→21:17)
[2021-10-08] MEDS: PRENATAL VITAMINS W/ FOLIC ACID TABLET (FP) PO SCH (10:04)
[2021-10-08] MEDS: NICOTINE 14 MG/24 HOURS TOPICAL PATCH TD SCH (10:04)
[2021-10-08] MEDS: MELATONIN 5 MG TABLETS PO SCH (21:17)
[2021-10-08] MEDS: THIAMINE HCL 100 MG TABLET (FP) PO SCH (21:17)
[2021-10-09] MEDS ORDERED: methaDONE HCL 40 MG DISPERSABLE TABLET ONE (04:03)
[2021-10-09] MEDS ORDERED: methaDONE HCL 10 MG TABLET ONE (04:03)
[2021-10-09] MEDS: NICOTINE POLACRILEX 2 MG GUM BC PRN ×3 (06:19→17:35)
[2021-10-09] MEDS: NICOTINE 10 MG CARTRIDGE (INHALER) IH PRN ×3 (06:19→17:35)
[2021-10-09] MEDS: PRENATAL VITAMINS W/ FOLIC ACID TABLET (FP) PO SCH (09:51)
[2021-10-09] MEDS: NICOTINE 14 MG/24 HOURS TOPICAL PATCH TD SCH (09:52)
[2021-10-09] MEDS: THIAMINE HCL 100 MG TABLET (FP) PO SCH (21:19)
[2021-10-09] MEDS: MELATONIN 5 MG TABLETS PO SCH (21:20)
[2021-10-10] MEDS ORDERED: methaDONE HCL 10 MG TABLET ONE (04:10)
[2021-10-10] MEDS ORDERED: methaDONE HCL 40 MG DISPERSABLE TABLET ONE (04:10)
[2021-10-10] MEDS: NICOTINE POLACRILEX 2 MG GUM BC PRN ×2 (06:00→21:04)
[2021-10-10] MEDS: PRENATAL VITAMINS W/ FOLIC ACID TABLET (FP) PO SCH (10:01)
[2021-10-10] MEDS: NICOTINE 14 MG/24 HOURS TOPICAL PATCH TD SCH (10:02)
[2021-10-10] MEDS: NICOTINE 10 MG CARTRIDGE (INHALER) IH PRN ×2 (10:02→21:03)
[2021-10-10] MEDS: THIAMINE HCL 100 MG TABLET (FP) PO SCH (21:02)
[2021-10-10] MEDS: MELATONIN 5 MG TABLETS PO SCH (21:02)
[2021-10-10] MEDS: IBUPROFEN 400 MG TABLET (FP) PO PRN (21:03)
[2021-10-11] MEDS ORDERED: methaDONE HCL 10 MG TABLET ONE (04:51)
[2021-10-11] MEDS ORDERED: methaDONE HCL 40 MG DISPERSABLE TABLET ONE (04:52)
[2021-10-11] MEDS: NICOTINE POLACRILEX 2 MG GUM BC PRN ×3 (06:04→21:06)
[2021-10-11] MEDS: NICOTINE 10 MG CARTRIDGE (INHALER) IH PRN ×3 (06:04→21:06)
[2021-10-11] MEDS: NICOTINE 14 MG/24 HOURS TOPICAL PATCH TD SCH (10:08)
[2021-10-11] MEDS: PRENATAL VITAMINS W/ FOLIC ACID TABLET (FP) PO SCH (10:11)
[2021-10-11] MEDS: THIAMINE HCL 100 MG TABLET (FP) PO SCH (21:05)
[2021-10-11] MEDS: IBUPROFEN 400 MG TABLET (FP) PO PRN (21:05)
[2021-10-11] MEDS: MELATONIN 5 MG TABLETS PO SCH (21:05)
[2021-10-12] MEDS ORDERED: methaDONE HCL 40 MG DISPERSABLE TABLET ONE (03:07)
[2021-10-12] MEDS ORDERED: methaDONE HCL 10 MG TABLET ONE (03:07)
[2021-10-12] MEDS: NICOTINE 10 MG CARTRIDGE (INHALER) IH PRN (06:15)
[2021-10-12] MEDS: NICOTINE POLACRILEX 2 MG GUM BC PRN (06:16)
[2021-10-12 08:11] VITALS: BP 113/78; PULSE 78; TEMP 98
== END 2021-10-12 09:21 | disposition home or self-care (01) | DRG 772 ==
LOC: YASAS 17:16 → Y3W 09-14 03:36
PROVIDERS: ADMIT Allergy & Immunology; ATTEND Allergy & Immunology
PROC: HZ42ZZZ Group Counseling for Substance Abuse Treatment, Cognitive-Behavioral (ICD-10-PCS; principal; 2021-09-14)
DX: F11.20 Opioid dependence, uncomplicated (principal); F14.20 Cocaine dependence, uncomplicated; F13.20 Sedative, hypnotic or anxiolytic dependence, uncomplicated; F15.20 Other stimulant dependence, uncomplicated; F12.20 Cannabis dependence, uncomplicated; F17.210 Nicotine dependence, cigarettes, uncomplicated; F19.280 Other psychoactive substance dependence with psychoactive substance-induced anxiety disorder; F31.9 Bipolar disorder, unspecified; F41.9 Anxiety disorder, unspecified; B18.2 Chronic viral hepatitis C; Z56.0 Unemployment, unspecified; Z59.00 Homelessness unspecified
CPT/HCPCS: 36415; 80053; 81003; 85027; 86780; 87389; 93005; 93010; C9803-CS; U0003; U0005

== ENCOUNTER 2022-04-06 10:41 | Inpatient (IN) | payer OTHER ==
[2022-04-06 11:41] VITALS: BMI 22.8
[2022-04-06] MEDS ORDERED: guaiFENesin 200 MG/10 ML 10 ML UNIT-DOSE CUPS PO PRN (12:33)
[2022-04-06] MEDS ORDERED: IBUPROFEN 400 MG TABLET (FP) PO PRN (12:33)
[2022-04-06] MEDS ORDERED: ACETAMINOPHEN 325 MG TABLET (FP) PO PRN (12:33)
[2022-04-06] MEDS ORDERED: MAGNESIUM HYDROX 2400MG/30ML ORAL SUSPENSION 30 ML CUP PO PRN (12:33)
[2022-04-06] MEDS ORDERED: MAGNESIUM CITRATE 300 ML BOTTLE PO PRN (12:33)
[2022-04-06] MEDS ORDERED: LOPERAMIDE HCL 2 MG CAPSULE PO PRN (12:33)
[2022-04-06] MEDS ORDERED: MAG HYDROX/AL HYDROX/SIMETH 30 ML UNIT-DOSE CUP PO PRN (12:33)
[2022-04-06] MEDS ORDERED: P-EPHED 60MG/TRIPROLIDI 2.5MG TABLET PO PRN (12:33)
[2022-04-06] MEDS: BACITRACIN 15 GM TUBE TOPICAL OINTMENT TP SCH ×2 (17:11→21:36)
[2022-04-06] MEDS: MELATONIN 5 MG TABLETS PO SCH (21:23)
[2022-04-06] MEDS: THIAMINE HCL 100 MG TABLET (FP) PO SCH (21:23)
[2022-04-07] MEDS: methaDONE HCL 40 MG DISPERSABLE TABLET PO SCH (06:48)
[2022-04-07] MEDS: NICOTINE POLACRILEX 2 MG GUM BC PRN (10:17)
[2022-04-07] MEDS: NICOTINE 14 MG/24 HOURS TOPICAL PATCH TD SCH (10:17)
[2022-04-07] MEDS: PRENATAL VITAMINS W/ FOLIC ACID TABLET (FP) PO SCH (10:17)
[2022-04-07] MEDS: BACITRACIN 15 GM TUBE TOPICAL OINTMENT TP SCH ×2 (10:18→21:19)
[2022-04-07] MEDS: MELATONIN 5 MG TABLETS PO SCH (21:19)
[2022-04-07] MEDS: THIAMINE HCL 100 MG TABLET (FP) PO SCH (21:19)
[2022-04-08] MEDS: methaDONE HCL 40 MG DISPERSABLE TABLET PO SCH (06:33)
[2022-04-08] MEDS: NICOTINE 14 MG/24 HOURS TOPICAL PATCH TD SCH (10:08)
[2022-04-08] MEDS: PRENATAL VITAMINS W/ FOLIC ACID TABLET (FP) PO SCH (10:08)
[2022-04-08] MEDS: BACITRACIN 15 GM TUBE TOPICAL OINTMENT TP SCH ×2 (10:09→21:32)
[2022-04-08] MEDS: NICOTINE POLACRILEX 2 MG GUM BC PRN ×2 (10:09→21:31)
[2022-04-08 11:07] LABS: PH,URINE 7.5 (5.0-8.0); URINE APPEARANCE CLEAR; URINE BILIRUBIN NEGATIVE (NEGATIVE); URINE COLOR YELLOW; URINE GLUCOSE (UA) NEGATIVE (NEGATIVE); URINE KETONE NEGATIVE (NEGATIVE); URINE LEUK ESTERASE NEGATIVE (NEGATIVE); URINE NITRITE NEGATIVE (NEGATIVE); URINE PROTEIN NEGATIVE (NEGATIVE); URINE UROBILINOGEN 0.2 mg/dL (0.2-1.0)
[2022-04-08] MEDS: THIAMINE HCL 100 MG TABLET (FP) PO SCH (21:30)
[2022-04-08] MEDS: hydrOXYzine PAMOATE 25 MG CAPSULE (FP) PO PRN (21:30)
[2022-04-08] MEDS: MELATONIN 5 MG TABLETS PO SCH (21:30)
[2022-04-09] MEDS: methaDONE HCL 40 MG DISPERSABLE TABLET PO SCH (06:19)
[2022-04-09] MEDS: PRENATAL VITAMINS W/ FOLIC ACID TABLET (FP) PO SCH (10:19)
[2022-04-09] MEDS: NICOTINE 14 MG/24 HOURS TOPICAL PATCH TD SCH (10:19)
[2022-04-09] MEDS: NICOTINE POLACRILEX 2 MG GUM BC PRN ×2 (10:20→21:30)
[2022-04-09] MEDS: BACITRACIN 15 GM TUBE TOPICAL OINTMENT TP SCH ×2 (10:21→21:29)
[2022-04-09 12:15] LABS: CALCIUM 9.5 mg/dL (8.5-10.1)
[2022-04-09 12:16] LABS: ALBUMIN 3.7 g/dl (3.4-5.0)
[2022-04-09 12:19] LABS: CREATININE 0.8 mg/dL (0.55-1.3)
[2022-04-09 12:21] LABS: BILIRUBIN,TOTAL 0.4 mg/dL (0.2-1); TOT PROT 7.6 g/dl (6.4-8.2)
[2022-04-09 12:26] LABS: HEMATOCRIT 35.4 % (35.4-49); HEMOGLOBIN 11.6 GM/dL (11.7-16.9); MCH 24.8 pg (25.7-33.7); MCHC 32.9 g/dl (32.0-35.9); MEAN CELL VOLUME 75.5 fl (80-96); MEAN PLT VOLUME 6.9 fl (7.5-11.1); PLATELET COUNT 363 10^3/uL (134-434); RBC 4.69 M/mm3 (4.00-5.60); WHITE BLOOD COUNT 9.6 K/mm3 (4.0-10.0)
[2022-04-09] MEDS: THIAMINE HCL 100 MG TABLET (FP) PO SCH (21:29)
[2022-04-09] MEDS: MELATONIN 5 MG TABLETS PO SCH (21:29)
[2022-04-10] MEDS: methaDONE HCL 40 MG DISPERSABLE TABLET PO SCH (06:19)
[2022-04-10] MEDS: PRENATAL VITAMINS W/ FOLIC ACID TABLET (FP) PO SCH (10:03)
[2022-04-10] MEDS: NICOTINE 14 MG/24 HOURS TOPICAL PATCH TD SCH (10:03)
[2022-04-10] MEDS: NICOTINE POLACRILEX 2 MG GUM BC PRN (10:04)
[2022-04-10] MEDS: BACITRACIN 15 GM TUBE TOPICAL OINTMENT TP SCH ×2 (10:04→21:27)
[2022-04-10] MEDS: MELATONIN 5 MG TABLETS PO SCH (21:27)
[2022-04-10] MEDS: THIAMINE HCL 100 MG TABLET (FP) PO SCH (21:27)
[2022-04-11] MEDS: methaDONE HCL 40 MG DISPERSABLE TABLET PO SCH (06:35)
[2022-04-11] MEDS: NICOTINE 14 MG/24 HOURS TOPICAL PATCH TD SCH (09:50)
[2022-04-11] MEDS: PRENATAL VITAMINS W/ FOLIC ACID TABLET (FP) PO SCH (09:50)
[2022-04-11] MEDS: BACITRACIN 15 GM TUBE TOPICAL OINTMENT TP SCH ×2 (09:51→21:24)
[2022-04-11] MEDS: NICOTINE POLACRILEX 2 MG GUM BC PRN (09:51)
[2022-04-11] MEDS: THIAMINE HCL 100 MG TABLET (FP) PO SCH (21:23)
[2022-04-11] MEDS: MELATONIN 5 MG TABLETS PO SCH (21:23)
[2022-04-12] MEDS: methaDONE HCL 40 MG DISPERSABLE TABLET PO SCH (06:19)
[2022-04-12] MEDS: PRENATAL VITAMINS W/ FOLIC ACID TABLET (FP) PO SCH (10:16)
[2022-04-12] MEDS: BACITRACIN 15 GM TUBE TOPICAL OINTMENT TP SCH ×2 (10:17→21:33)
[2022-04-12] MEDS: NICOTINE POLACRILEX 2 MG GUM BC PRN (10:17)
[2022-04-12] MEDS: NICOTINE 14 MG/24 HOURS TOPICAL PATCH TD SCH (10:17)
[2022-04-12] MEDS: THIAMINE HCL 100 MG TABLET (FP) PO SCH (21:33)
[2022-04-12] MEDS: MELATONIN 5 MG TABLETS PO SCH (21:33)
[2022-04-13] MEDS: methaDONE HCL 40 MG DISPERSABLE TABLET PO SCH (06:18)
[2022-04-13] MEDS: NICOTINE 14 MG/24 HOURS TOPICAL PATCH TD SCH (10:14)
[2022-04-13] MEDS: BACITRACIN 15 GM TUBE TOPICAL OINTMENT TP SCH ×2 (10:14→21:24)
[2022-04-13] MEDS: PRENATAL VITAMINS W/ FOLIC ACID TABLET (FP) PO SCH (10:14)
[2022-04-13] MEDS: NICOTINE POLACRILEX 2 MG GUM BC PRN (10:16)
[2022-04-13] MEDS: THIAMINE HCL 100 MG TABLET (FP) PO SCH (21:24)
[2022-04-13] MEDS: MELATONIN 5 MG TABLETS PO SCH (21:24)
[2022-04-14] MEDS ORDERED: methaDONE HCL 10 MG TABLET PO SCH (08:00)
[2022-04-14] MEDS: NICOTINE 14 MG/24 HOURS TOPICAL PATCH TD SCH (09:52)
[2022-04-14] MEDS: BACITRACIN 15 GM TUBE TOPICAL OINTMENT TP SCH ×2 (09:52→21:29)
[2022-04-14] MEDS: PRENATAL VITAMINS W/ FOLIC ACID TABLET (FP) PO SCH (09:52)
[2022-04-14] MEDS: NICOTINE POLACRILEX 2 MG GUM BC PRN ×2 (09:53→21:30)
[2022-04-14] MEDS ORDERED: methaDONE HCL 10 MG TABLET PO ONE (11:01)
[2022-04-14] MEDS ORDERED: methaDONE HCL 40 MG DISPERSABLE TABLET PO ONE (11:45)
[2022-04-14] MEDS: THIAMINE HCL 100 MG TABLET (FP) PO SCH (21:29)
[2022-04-14] MEDS: MELATONIN 5 MG TABLETS PO SCH (21:29)
[2022-04-15] MEDS ORDERED: methaDONE HCL 10 MG TABLET PO SCH (06:00)
[2022-04-15] MEDS: methaDONE HCL 40 MG DISPERSABLE TABLET PO SCH (06:24)
[2022-04-15] MEDS: PRENATAL VITAMINS W/ FOLIC ACID TABLET (FP) PO SCH (09:54)
[2022-04-15] MEDS: NICOTINE 14 MG/24 HOURS TOPICAL PATCH TD SCH (09:55)
[2022-04-15] MEDS: BACITRACIN 15 GM TUBE TOPICAL OINTMENT TP SCH ×2 (09:56→21:40)
[2022-04-15] MEDS: NICOTINE POLACRILEX 2 MG GUM BC PRN ×2 (09:56→21:41)
[2022-04-15] MEDS: THIAMINE HCL 100 MG TABLET (FP) PO SCH (21:39)
[2022-04-15] MEDS: MELATONIN 5 MG TABLETS PO SCH (21:39)
[2022-04-16] MEDS: methaDONE HCL 40 MG DISPERSABLE TABLET PO SCH (06:16)
[2022-04-16] MEDS: PRENATAL VITAMINS W/ FOLIC ACID TABLET (FP) PO SCH (09:59)
[2022-04-16] MEDS: BACITRACIN 15 GM TUBE TOPICAL OINTMENT TP SCH ×2 (09:59→21:40)
[2022-04-16] MEDS: NICOTINE 14 MG/24 HOURS TOPICAL PATCH TD SCH (09:59)
[2022-04-16] MEDS: THIAMINE HCL 100 MG TABLET (FP) PO SCH (21:40)
[2022-04-16] MEDS: MELATONIN 5 MG TABLETS PO SCH (21:40)
[2022-04-17] MEDS: methaDONE HCL 40 MG DISPERSABLE TABLET PO SCH (06:26)
[2022-04-17] MEDS: NICOTINE POLACRILEX 2 MG GUM BC PRN ×2 (06:28→10:10)
[2022-04-17] MEDS: NICOTINE 14 MG/24 HOURS TOPICAL PATCH TD SCH (10:10)
[2022-04-17] MEDS: PRENATAL VITAMINS W/ FOLIC ACID TABLET (FP) PO SCH (10:10)
[2022-04-17] MEDS: BACITRACIN 15 GM TUBE TOPICAL OINTMENT TP SCH ×2 (10:11→21:41)
[2022-04-17] MEDS: MELATONIN 5 MG TABLETS PO SCH (21:40)
[2022-04-17] MEDS: THIAMINE HCL 100 MG TABLET (FP) PO SCH (21:41)
[2022-04-17] MEDS: NICOTINE 10 MG CARTRIDGE (INHALER) IH PRN (21:42)
[2022-04-18] MEDS: methaDONE HCL 40 MG DISPERSABLE TABLET PO SCH (06:14)
[2022-04-18] MEDS: PRENATAL VITAMINS W/ FOLIC ACID TABLET (FP) PO SCH (10:02)
[2022-04-18] MEDS: NICOTINE 14 MG/24 HOURS TOPICAL PATCH TD SCH (10:02)
[2022-04-18] MEDS: NICOTINE POLACRILEX 2 MG GUM BC PRN ×2 (10:03→21:29)
[2022-04-18] MEDS: BACITRACIN 15 GM TUBE TOPICAL OINTMENT TP SCH ×2 (10:03→21:28)
[2022-04-18] MEDS: THIAMINE HCL 100 MG TABLET (FP) PO SCH (21:28)
[2022-04-18] MEDS: MELATONIN 5 MG TABLETS PO SCH (21:28)
[2022-04-19] MEDS: methaDONE HCL 40 MG DISPERSABLE TABLET PO SCH (06:16)
[2022-04-19] MEDS: BACITRACIN 15 GM TUBE TOPICAL OINTMENT TP SCH ×2 (10:16→21:48)
[2022-04-19] MEDS: NICOTINE POLACRILEX 2 MG GUM BC PRN (10:16)
[2022-04-19] MEDS: NICOTINE 14 MG/24 HOURS TOPICAL PATCH TD SCH (10:16)
[2022-04-19] MEDS: PRENATAL VITAMINS W/ FOLIC ACID TABLET (FP) PO SCH (10:16)
[2022-04-19] MEDS: MELATONIN 5 MG TABLETS PO SCH (21:48)
[2022-04-19] MEDS: THIAMINE HCL 100 MG TABLET (FP) PO SCH (21:48)
[2022-04-20] MEDS: methaDONE HCL 40 MG DISPERSABLE TABLET PO SCH (06:10)
[2022-04-20] MEDS: PRENATAL VITAMINS W/ FOLIC ACID TABLET (FP) PO SCH (10:06)
[2022-04-20] MEDS: NICOTINE 14 MG/24 HOURS TOPICAL PATCH TD SCH (10:06)
[2022-04-20] MEDS: BACITRACIN 15 GM TUBE TOPICAL OINTMENT TP SCH ×2 (10:06→21:35)
[2022-04-20] MEDS: NICOTINE POLACRILEX 2 MG GUM BC PRN ×2 (10:07→21:35)
[2022-04-20] MEDS: MELATONIN 5 MG TABLETS PO SCH (21:34)
[2022-04-20] MEDS: THIAMINE HCL 100 MG TABLET (FP) PO SCH (21:34)
[2022-04-21] MEDS: methaDONE HCL 40 MG DISPERSABLE TABLET PO SCH (06:20)
[2022-04-21] MEDS: NICOTINE POLACRILEX 2 MG GUM BC PRN ×2 (06:24→09:57)
[2022-04-21] MEDS: NICOTINE 14 MG/24 HOURS TOPICAL PATCH TD SCH (09:56)
[2022-04-21] MEDS: BACITRACIN 15 GM TUBE TOPICAL OINTMENT TP SCH ×2 (09:56→21:33)
[2022-04-21] MEDS: PRENATAL VITAMINS W/ FOLIC ACID TABLET (FP) PO SCH (09:56)
[2022-04-21] MEDS: MELATONIN 5 MG TABLETS PO SCH (21:33)
[2022-04-21] MEDS: THIAMINE HCL 100 MG TABLET (FP) PO SCH (21:33)
[2022-04-22] MEDS: methaDONE HCL 40 MG DISPERSABLE TABLET PO SCH (06:48)
[2022-04-22] MEDS: PRENATAL VITAMINS W/ FOLIC ACID TABLET (FP) PO SCH (10:01)
[2022-04-22] MEDS: NICOTINE POLACRILEX 2 MG GUM BC PRN (10:02)
[2022-04-22] MEDS: NICOTINE 14 MG/24 HOURS TOPICAL PATCH TD SCH (10:02)
[2022-04-22] MEDS: BACITRACIN 15 GM TUBE TOPICAL OINTMENT TP SCH ×2 (10:02→21:27)
[2022-04-22] MEDS: THIAMINE HCL 100 MG TABLET (FP) PO SCH (21:27)
[2022-04-22] MEDS: MELATONIN 5 MG TABLETS PO SCH (21:27)
[2022-04-23] MEDS: methaDONE HCL 40 MG DISPERSABLE TABLET PO SCH (06:19)
[2022-04-23] MEDS: NICOTINE 14 MG/24 HOURS TOPICAL PATCH TD SCH (10:07)
[2022-04-23] MEDS: PRENATAL VITAMINS W/ FOLIC ACID TABLET (FP) PO SCH (10:07)
[2022-04-23] MEDS: BACITRACIN 15 GM TUBE TOPICAL OINTMENT TP SCH ×2 (10:09→21:43)
[2022-04-23] MEDS: NICOTINE POLACRILEX 2 MG GUM BC PRN ×2 (10:09→21:44)
[2022-04-23] MEDS: MELATONIN 5 MG TABLETS PO SCH (21:42)
[2022-04-23] MEDS: THIAMINE HCL 100 MG TABLET (FP) PO SCH (21:43)
[2022-04-24] MEDS: methaDONE HCL 40 MG DISPERSABLE TABLET PO SCH (07:00)
[2022-04-24] MEDS: BACITRACIN 15 GM TUBE TOPICAL OINTMENT TP SCH ×2 (09:59→21:33)
[2022-04-24] MEDS: NICOTINE POLACRILEX 2 MG GUM BC PRN ×2 (09:59→21:33)
[2022-04-24] MEDS: PRENATAL VITAMINS W/ FOLIC ACID TABLET (FP) PO SCH (09:59)
[2022-04-24] MEDS: NICOTINE 14 MG/24 HOURS TOPICAL PATCH TD SCH (09:59)
[2022-04-24] MEDS: MELATONIN 5 MG TABLETS PO SCH (21:32)
[2022-04-24] MEDS: THIAMINE HCL 100 MG TABLET (FP) PO SCH (21:32)
[2022-04-25] MEDS: methaDONE HCL 40 MG DISPERSABLE TABLET PO SCH (06:17)
[2022-04-25] MEDS: PRENATAL VITAMINS W/ FOLIC ACID TABLET (FP) PO SCH (09:59)
[2022-04-25] MEDS: BACITRACIN 15 GM TUBE TOPICAL OINTMENT TP SCH ×2 (09:59→21:30)
[2022-04-25] MEDS: NICOTINE 14 MG/24 HOURS TOPICAL PATCH TD SCH (09:59)
[2022-04-25] MEDS: NICOTINE POLACRILEX 2 MG GUM BC PRN ×2 (10:00→21:31)
[2022-04-25] MEDS: MELATONIN 5 MG TABLETS PO SCH (21:31)
[2022-04-25] MEDS: THIAMINE HCL 100 MG TABLET (FP) PO SCH (21:31)
[2022-04-25] MEDS: NICOTINE 10 MG CARTRIDGE (INHALER) IH PRN (21:33)
[2022-04-26] MEDS: methaDONE HCL 40 MG DISPERSABLE TABLET PO SCH (06:23)
[2022-04-26] MEDS: NICOTINE POLACRILEX 2 MG GUM BC PRN ×3 (06:24→21:25)
[2022-04-26] MEDS: PRENATAL VITAMINS W/ FOLIC ACID TABLET (FP) PO SCH (09:47)
[2022-04-26] MEDS: NICOTINE 14 MG/24 HOURS TOPICAL PATCH TD SCH (09:47)
[2022-04-26] MEDS: BACITRACIN 15 GM TUBE TOPICAL OINTMENT TP SCH ×2 (09:48→21:25)
[2022-04-26] MEDS: THIAMINE HCL 100 MG TABLET (FP) PO SCH (21:25)
[2022-04-26] MEDS: MELATONIN 5 MG TABLETS PO SCH (21:25)
[2022-04-27] MEDS: methaDONE HCL 40 MG DISPERSABLE TABLET PO SCH (06:21)
[2022-04-27] MEDS: NICOTINE POLACRILEX 2 MG GUM BC PRN ×3 (06:25→21:17)
[2022-04-27] MEDS: BACITRACIN 15 GM TUBE TOPICAL OINTMENT TP SCH ×2 (09:54→21:17)
[2022-04-27] MEDS: NICOTINE 14 MG/24 HOURS TOPICAL PATCH TD SCH (09:54)
[2022-04-27] MEDS: PRENATAL VITAMINS W/ FOLIC ACID TABLET (FP) PO SCH (09:54)
[2022-04-27] MEDS: THIAMINE HCL 100 MG TABLET (FP) PO SCH (21:16)
[2022-04-27] MEDS: MELATONIN 5 MG TABLETS PO SCH (21:16)
[2022-04-28] MEDS: methaDONE HCL 40 MG DISPERSABLE TABLET PO SCH (06:36)
[2022-04-28] MEDS: NICOTINE POLACRILEX 2 MG GUM BC PRN ×3 (06:39→21:16)
[2022-04-28] MEDS: NICOTINE 14 MG/24 HOURS TOPICAL PATCH TD SCH (09:47)
[2022-04-28] MEDS: BACITRACIN 15 GM TUBE TOPICAL OINTMENT TP SCH ×2 (09:47→21:15)
[2022-04-28] MEDS: PRENATAL VITAMINS W/ FOLIC ACID TABLET (FP) PO SCH (09:48)
[2022-04-28] MEDS: THIAMINE HCL 100 MG TABLET (FP) PO SCH (21:15)
[2022-04-28] MEDS: MELATONIN 5 MG TABLETS PO SCH (21:15)
[2022-04-29] MEDS: methaDONE HCL 40 MG DISPERSABLE TABLET PO SCH (06:24)
[2022-04-29] MEDS: NICOTINE POLACRILEX 2 MG GUM BC PRN ×2 (06:25→09:30)
[2022-04-29 07:04] VITALS: TEMP 97.8
[2022-04-29] MEDS: NICOTINE 14 MG/24 HOURS TOPICAL PATCH TD SCH (09:29)
[2022-04-29] MEDS: PRENATAL VITAMINS W/ FOLIC ACID TABLET (FP) PO SCH (09:29)
[2022-04-29] MEDS: BACITRACIN 15 GM TUBE TOPICAL OINTMENT TP SCH ×2 (11:14→21:28)
[2022-04-29] MEDS: hydrOXYzine PAMOATE 25 MG CAPSULE (FP) PO PRN (21:28)
[2022-04-29] MEDS: MELATONIN 5 MG TABLETS PO SCH (21:28)
[2022-04-29] MEDS: THIAMINE HCL 100 MG TABLET (FP) PO SCH (21:28)
[2022-04-30] MEDS: methaDONE HCL 40 MG DISPERSABLE TABLET PO SCH (06:17)
[2022-04-30] MEDS: hydrOXYzine PAMOATE 25 MG CAPSULE (FP) PO PRN (06:19)
[2022-04-30] MEDS: NICOTINE POLACRILEX 2 MG GUM BC PRN (06:21)
[2022-04-30 07:00] VITALS: BP 112/70; PULSE 66; RESP 16
[2022-04-30] MEDS: NICOTINE 14 MG/24 HOURS TOPICAL PATCH TD SCH (09:14)
[2022-04-30] MEDS: BACITRACIN 15 GM TUBE TOPICAL OINTMENT TP SCH (09:14)
[2022-04-30] MEDS: PRENATAL VITAMINS W/ FOLIC ACID TABLET (FP) PO SCH (09:14)
== END 2022-04-30 09:25 | disposition home or self-care (01) | DRG 772 ==
LOC: YASAS 10:41 → Y5N 15:37
PROVIDERS: ADMIT Allergy & Immunology; ATTEND Psychiatry & Neurology Pain Medicine
PROC: HZ42ZZZ Group Counseling for Substance Abuse Treatment, Cognitive-Behavioral (ICD-10-PCS; principal; 2022-04-06)
DX: F10.20 Alcohol dependence, uncomplicated (principal); F11.20 Opioid dependence, uncomplicated; F13.20 Sedative, hypnotic or anxiolytic dependence, uncomplicated; F14.20 Cocaine dependence, uncomplicated; F12.20 Cannabis dependence, uncomplicated; F17.210 Nicotine dependence, cigarettes, uncomplicated; F19.280 Other psychoactive substance dependence with psychoactive substance-induced anxiety disorder; F19.24 Other psychoactive substance dependence with psychoactive substance-induced mood disorder; B18.2 Chronic viral hepatitis C; R21 Rash and other nonspecific skin eruption; Z91.199 Patient's noncompliance with other medical treatment and regimen due to unspecified reason
CPT/HCPCS: 36415; 80053; 81003; 85027; 86780; 87811; C9803-CS; U0003; U0005

== ENCOUNTER 2023-06-01 14:21 | Inpatient (IN) | payer OTHER ==
[2023-06-01] MEDS ORDERED: VANCOMYCIN 1,000 MG in DEXTROSE 5%-WATER - 250 ML IVPB ONE (15:28)
[2023-06-01] MEDS ORDERED: PIPERACILLIN/TAZOB 4.5 GM 4.5 GM in DEXTROSE 5%-WATER 100 ML IVPB ONE (15:28)
[2023-06-01] MEDS ORDERED: PIPERACILLIN/TAZOB 4.5 GM 4.5 GM/100 ML BAG IVPB ONE (15:44)
[2023-06-01 15:50] LABS: BASO % 0.5 % (0-2.0); EOS % 1.7 % (0-4.5); HEMATOCRIT 33.5 % (35.4-49); HEMOGLOBIN 11.1 GM/dL (11.7-16.9); MCH 27.2 pg (25.7-33.7); MEAN CELL VOLUME 82.4 fl (80-96); MEAN PLT VOLUME 7.7 fl (7.5-11.1); MONO % 5.8 % (3.8-10.2); PLATELET COUNT 326 10^3/uL (134-434); RBC 4.07 M/mm3 (4.00-5.60); RDW 13.2 % (11.9-15.9); WHITE BLOOD COUNT 8.2 K/mm3 (4.0-10.0)
[2023-06-01 16:01] LABS: POTASSIUM 3.6 mmol/L (3.5-5.1)
[2023-06-01 16:04] LABS: ALBUMIN 3.2 g/dl (3.4-5.0); BLOOD UREA NITROGEN 10.4 mg/dL (7-18); CALCIUM 9.2 mg/dL (8.5-10.1); INR 1.04 (0.83-1.09); PROTHROMBIN TIME (PATIENT) 12.1 SEC (9.7-13.0)
[2023-06-01 16:07] LABS: ACTIVATED PTT 30.7 SECONDS (25.2-36.5); CREATININE 0.7 mg/dL (0.55-1.3)
[2023-06-01 16:09] LABS: BILIRUBIN,TOTAL 0.3 mg/dL (0.2-1); TOT PROT 7.5 g/dl (6.4-8.2)
[2023-06-01 17:01] LABS: ERYTHROCYTE SEDIMENTATION RATE 91 mm/hr (0-10)
[2023-06-01] MEDS ORDERED: ACETAMINOPHEN 500 MG TABLET (FP) PO PRN (18:02)
[2023-06-01] MEDS ORDERED: KETOROLAC TROMETHAMINE 15 MG/ML VIAL IVPUSH PRN (18:03)
[2023-06-01] MEDS ORDERED: LACTATED RINGERS SOLUTION 1,000 ML/1,000 ML INFUS.BAG IV SCH (18:15)
[2023-06-01 21:00] VITALS: BMI 23.8
[2023-06-01] MEDS: HEPARIN NA (PORCINE) 5,000 UNITS/ML 1ML VIAL SQ SCH (21:34)
[2023-06-01] MEDS ORDERED: DOXYCYCLINE INJECTION 100 MG in DEXTROSE 5%-WATER 100 ML IVPB SCH (22:00)
[2023-06-02 09:04] LABS: BASO % 0.7 % (0-2.0); EOS % 2.3 % (0-4.5); HEMATOCRIT 30.5 % (35.4-49); HEMOGLOBIN 10.3 GM/dL (11.7-16.9); LYMPH % 38.8 % (8-40); MCH 27.8 pg (25.7-33.7); MEAN CELL VOLUME 81.9 fl (80-96); MEAN PLT VOLUME 7.9 fl (7.5-11.1); NEUT % 51.2 % (42.8-82.8); PLATELET COUNT 314 10^3/uL (134-434); RBC 3.72 M/mm3 (4.00-5.60); WHITE BLOOD COUNT 6.7 K/mm3 (4.0-10.0)
[2023-06-02 09:25] LABS: POTASSIUM 3.9 mmol/L (3.5-5.1)
[2023-06-02 09:29] LABS: BLOOD UREA NITROGEN 7.9 mg/dL (7-18); CALCIUM 9.4 mg/dL (8.5-10.1)
[2023-06-02 09:32] LABS: CREATININE 0.7 mg/dL (0.55-1.3)
[2023-06-02] MEDS: VANCOMYCIN/WATER FOR INJ (PEG) 1,000 MG/200 ML BAG IVPB SCH ×2 (10:53→23:09)
[2023-06-02] MEDS: HEPARIN NA (PORCINE) 5,000 UNITS/ML 1ML VIAL SQ SCH ×2 (10:53→22:23)
[2023-06-02 12:18] LABS: HIV INTERPRETATION NEGATIVE (NEGATIVE)
[2023-06-02] MEDS: CHLORHEXIDINE GLUCONATE 4% CLEANSER FOR DECOLONIZATION TP SCH (22:24)
[2023-06-03] MEDS ORDERED: methaDONE HCL 10 MG TABLET (FOR DETOX USE ONLY) PO ONE (08:41)
[2023-06-03] MEDS: VANCOMYCIN/WATER FOR INJ (PEG) 1,000 MG/200 ML BAG IVPB SCH ×4 (10:19→22:29)
[2023-06-03] MEDS: HEPARIN NA (PORCINE) 5,000 UNITS/ML 1ML VIAL SQ SCH ×3 (10:20→22:29)
[2023-06-03] MEDS ORDERED: methaDONE HCL 40 MG DISPERSABLE TABLET PO ONE (12:00)
[2023-06-03 14:29] VITALS: RESP 18
[2023-06-03 16:38] LABS: HEMATOCRIT 34.5 % (35.4-49); HEMOGLOBIN 11.4 GM/dL (11.7-16.9); MCHC 33.2 g/dl (32.0-35.9); MEAN CELL VOLUME 81.6 fl (80-96); MEAN PLT VOLUME 7.4 fl (7.5-11.1); PLATELET COUNT 355 10^3/uL (134-434); RBC 4.23 M/mm3 (4.00-5.60); RDW 13.1 % (11.9-15.9); WHITE BLOOD COUNT 8.1 K/mm3 (4.0-10.0)
[2023-06-03 17:05] LABS: CALCIUM 9.2 mg/dL (8.5-10.1)
[2023-06-03 17:06] LABS: ALBUMIN 2.9 g/dl (3.4-5.0)
[2023-06-03 17:09] LABS: CREATININE 0.8 mg/dL (0.55-1.3)
[2023-06-03 17:10] LABS: BILIRUBIN,TOTAL 0.3 mg/dL (0.2-1); TOT PROT 7.2 g/dl (6.4-8.2)
[2023-06-03 17:17] LABS: ERYTHROCYTE SEDIMENTATION RATE 43 mm/hr (0-10)
[2023-06-04] MEDS: CHLORHEXIDINE GLUCONATE 4% CLEANSER FOR DECOLONIZATION TP SCH ×2 (00:09→22:42)
[2023-06-04] MEDS ORDERED: methaDONE HCL 10 MG TABLET (FOR DETOX USE ONLY) PO ONE (08:30)
[2023-06-04] MEDS: VANCOMYCIN/WATER FOR INJ (PEG) 1,000 MG/200 ML BAG IVPB SCH (09:59)
[2023-06-04] MEDS: HEPARIN NA (PORCINE) 5,000 UNITS/ML 1ML VIAL SQ SCH ×2 (09:59→22:39)
[2023-06-05 09:38] LABS: BASO % 0.8 % (0-2.0); HEMATOCRIT 35.1 % (35.4-49); HEMOGLOBIN 11.5 GM/dL (11.7-16.9); LYMPH % 41.2 % (8-40); MCH 27.3 pg (25.7-33.7); MCHC 32.9 g/dl (32.0-35.9); MEAN PLT VOLUME 7.7 fl (7.5-11.1); MONO % 4.3 % (3.8-10.2); NEUT % 52.7 % (42.8-82.8); PLATELET COUNT 340 10^3/uL (134-434); RBC 4.23 M/mm3 (4.00-5.60); WHITE BLOOD COUNT 7.2 K/mm3 (4.0-10.0)
[2023-06-05] MEDS: HEPARIN NA (PORCINE) 5,000 UNITS/ML 1ML VIAL SQ SCH (10:10)
[2023-06-05 10:36] LABS: POTASSIUM 4.6 mmol/L (3.5-5.1)
[2023-06-05] MEDS: VANCOMYCIN/WATER FOR INJ (PEG) 1,000 MG/200 ML BAG IVPB SCH (10:55)
[2023-06-05 11:00] LABS: CALCIUM 9.3 mg/dL (8.5-10.1)
[2023-06-05 11:01] LABS: BLOOD UREA NITROGEN 12.9 mg/dL (7-18)
[2023-06-05 11:02] LABS: MAGNESIUM 1.8 mg/dL (1.8-2.4)
[2023-06-05 11:04] LABS: CREATININE 0.8 mg/dL (0.55-1.3)
[2023-06-05 11:05] LABS: PHOSPHOROUS 3.9 mg/dL (2.5-4.9)
[2023-06-05 11:58] LABS: ERYTHROCYTE SEDIMENTATION RATE 39 mm/hr (0-10)
[2023-06-05 14:40] VITALS: BP 119/54; PULSE 52; TEMP 98
== END 2023-06-05 03:00 | disposition other institution (70) | DRG 383 ==
LOC: JER 14:21 → JERBED 16:19 → J6S 19:17
PROVIDERS: ADMIT Internal Medicine; ATTEND Psychiatry & Neurology Pain Medicine
DX: L03.116 Cellulitis of left lower limb (principal); F31.9 Bipolar disorder, unspecified; F41.9 Anxiety disorder, unspecified; F11.20 Opioid dependence, uncomplicated; F17.200 Nicotine dependence, unspecified, uncomplicated; B18.2 Chronic viral hepatitis C; D64.9 Anemia, unspecified; L03.115 Cellulitis of right lower limb
CPT/HCPCS: 36415; 70450-TC; 70486-TC; 71045-TC-FY; 73610-TC-LT-FY; 73701-TC-RT; 80048; 80053; 82550; 82553; 83735; 84100; 84484; 85025; 85027; 85610; 85651; 85730; 86140; 86850; 86900; 86901; 87040; 87070; 87077; 87081; 87205; 87389; 87522; 93005; 93010; 99285-25; G0480; J1644; Q9967

== ENCOUNTER 2023-06-05 15:30 | Inpatient (IN) | payer OTHER ==
[2023-06-05 16:37] VITALS: BMI 25.0
[2023-06-05] MEDS ORDERED: P-EPHED 60MG/TRIPROLIDI 2.5MG TABLET PO PRN (19:16)
[2023-06-05] MEDS ORDERED: IBUPROFEN 600 MG TABLET (FP) PO PRN (19:16)
[2023-06-05] MEDS ORDERED: DOCUSATE SODIUM 100 MG CAPSULE (FP) PO PRN (19:16)
[2023-06-05] MEDS ORDERED: LOPERAMIDE HCL 2 MG CAPSULE PO PRN (19:16)
[2023-06-05] MEDS ORDERED: NALOXONE HCL 0.4 MG/ML VIAL IVPUSH PRN (19:16)
[2023-06-05] MEDS ORDERED: NALOXONE HCL (KLOXXADO) 8 MG SPRAY NS PRN (19:16)
[2023-06-05] MEDS ORDERED: METHOCARBAMOL 500 MG TABLET PO PRN (19:16)
[2023-06-05] MEDS ORDERED: MAG HYDROX/AL HYDROX/SIMETH 30 ML UNIT-DOSE CUP PO PRN (19:16)
[2023-06-05] MEDS ORDERED: MAGNESIUM HYDROX 2400MG/30ML ORAL SUSPENSION 30 ML CUP PO PRN (19:16)
[2023-06-05] MEDS ORDERED: guaiFENesin 600 MG TABLET.ER (FP) PO PRN (19:16)
[2023-06-05] MEDS ORDERED: ACETAMINOPHEN 325 MG TABLET (FP) PO PRN (19:16)
[2023-06-05] MEDS ORDERED: POLYETHYLENE GLYCOL (HEALTHYLAX) 3350 17 GM PACKET PO PRN (19:16)
[2023-06-05] MEDS ORDERED: COLLOIDAL OATMEAL 1 BAR EACH TP PRN (19:16)
[2023-06-05] MEDS ORDERED: IBUPROFEN 400 MG TABLET (FP) PO PRN (19:16)
[2023-06-05] MEDS ORDERED: BENZOCAINE/MENTHOL (CHLORASEPTIC ) LOZENGE MM PRN (19:16)
[2023-06-05] MEDS ORDERED: BENZONATATE 200 MG CAPSULE PO PRN (19:16)
[2023-06-05] MEDS ORDERED: MELATONIN 5 MG TABLETS PO SCH (22:00)
[2023-06-05] MEDS: THIAMINE HCL 100 MG TABLET (FP) PO SCH (22:02)
[2023-06-05] MEDS: AMOX TR/POT CLAV 500MG/125MG TABLETS (FP) PO SCH (23:11)
[2023-06-06] MEDS ORDERED: methaDONE HCL 10 MG TABLET PO SCH (09:15)
[2023-06-06] MEDS: AMOX TR/POT CLAV 500MG/125MG TABLETS (FP) PO SCH ×2 (09:42→21:30)
[2023-06-06] MEDS: PRENATAL VITAMINS W/ FOLIC ACID TABLET (FP) PO SCH (09:42)
[2023-06-06] MEDS: NICOTINE POLACRILEX 2 MG GUM BUC PRN ×2 (09:44→21:31)
[2023-06-06] MEDS: THIAMINE HCL 100 MG TABLET (FP) PO SCH (21:30)
[2023-06-06] MEDS: MELATONIN 5 MG TABLETS PO SCH (21:30)
[2023-06-07] MEDS: AMOX TR/POT CLAV 500MG/125MG TABLETS (FP) PO SCH ×2 (09:52→21:17)
[2023-06-07] MEDS: PRENATAL VITAMINS W/ FOLIC ACID TABLET (FP) PO SCH (09:52)
[2023-06-07] MEDS: NICOTINE POLACRILEX 2 MG GUM BUC PRN (09:53)
[2023-06-07] MEDS: NICOTINE 21 MG/24 HOURS TOPICAL PATCH TD SCH (10:50)
[2023-06-07] MEDS: THIAMINE HCL 100 MG TABLET (FP) PO SCH (21:17)
[2023-06-07] MEDS: MELATONIN 5 MG TABLETS PO SCH (21:17)
[2023-06-07] MEDS: NICOTINE POLACRILEX 4 MG GUM BUC PRN (21:18)
[2023-06-08] MEDS: AMOX TR/POT CLAV 500MG/125MG TABLETS (FP) PO SCH ×2 (09:39→21:30)
[2023-06-08] MEDS: NICOTINE 21 MG/24 HOURS TOPICAL PATCH TD SCH (09:39)
[2023-06-08] MEDS: PRENATAL VITAMINS W/ FOLIC ACID TABLET (FP) PO SCH (09:39)
[2023-06-08] MEDS: NICOTINE POLACRILEX 4 MG GUM BUC PRN (09:40)
[2023-06-08] MEDS: THIAMINE HCL 100 MG TABLET (FP) PO SCH (21:30)
[2023-06-08] MEDS: MELATONIN 5 MG TABLETS PO SCH (21:30)
[2023-06-09] MEDS: NICOTINE 21 MG/24 HOURS TOPICAL PATCH TD SCH (10:08)
[2023-06-09] MEDS: PRENATAL VITAMINS W/ FOLIC ACID TABLET (FP) PO SCH (10:08)
[2023-06-09] MEDS: NICOTINE POLACRILEX 2 MG GUM BUC PRN (10:09)
[2023-06-09] MEDS: AMOX TR/POT CLAV 500MG/125MG TABLETS (FP) PO SCH (10:09)
[2023-06-09] MEDS: NICOTINE POLACRILEX 4 MG GUM BUC PRN (18:48)
[2023-06-09] MEDS: THIAMINE HCL 100 MG TABLET (FP) PO SCH (21:09)
[2023-06-09] MEDS: hydrOXYzine PAMOATE 25 MG CAPSULE (FP) PO PRN (21:09)
[2023-06-09] MEDS: MELATONIN 5 MG TABLETS PO SCH (21:09)
[2023-06-10] MEDS: NICOTINE POLACRILEX 4 MG GUM BUC PRN ×2 (09:35→21:19)
[2023-06-10] MEDS: PRENATAL VITAMINS W/ FOLIC ACID TABLET (FP) PO SCH (09:35)
[2023-06-10] MEDS: NICOTINE 21 MG/24 HOURS TOPICAL PATCH TD SCH (09:35)
[2023-06-10] MEDS: MELATONIN 5 MG TABLETS PO SCH (21:19)
[2023-06-10] MEDS: THIAMINE HCL 100 MG TABLET (FP) PO SCH (21:19)
[2023-06-10] MEDS: hydrOXYzine PAMOATE 25 MG CAPSULE (FP) PO PRN (21:19)
[2023-06-11] MEDS: PRENATAL VITAMINS W/ FOLIC ACID TABLET (FP) PO SCH (09:58)
[2023-06-11] MEDS: NICOTINE POLACRILEX 4 MG GUM BUC PRN ×2 (09:59→21:05)
[2023-06-11] MEDS: NICOTINE 21 MG/24 HOURS TOPICAL PATCH TD SCH (09:59)
[2023-06-11] MEDS: THIAMINE HCL 100 MG TABLET (FP) PO SCH (21:05)
[2023-06-11] MEDS: MELATONIN 5 MG TABLETS PO SCH (21:05)
[2023-06-11] MEDS: hydrOXYzine PAMOATE 25 MG CAPSULE (FP) PO PRN (21:06)
[2023-06-12] MEDS: NICOTINE 21 MG/24 HOURS TOPICAL PATCH TD SCH (09:47)
[2023-06-12] MEDS: NICOTINE POLACRILEX 4 MG GUM BUC PRN ×2 (09:47→21:17)
[2023-06-12] MEDS: PRENATAL VITAMINS W/ FOLIC ACID TABLET (FP) PO SCH (09:47)
[2023-06-12] MEDS: hydrOXYzine PAMOATE 25 MG CAPSULE (FP) PO PRN (21:17)
[2023-06-12] MEDS: MELATONIN 5 MG TABLETS PO SCH (21:17)
[2023-06-12] MEDS: THIAMINE HCL 100 MG TABLET (FP) PO SCH (21:17)
[2023-06-13] MEDS: NICOTINE POLACRILEX 4 MG GUM BUC PRN (10:04)
[2023-06-13] MEDS: NICOTINE 21 MG/24 HOURS TOPICAL PATCH TD SCH (10:04)
[2023-06-13] MEDS: PRENATAL VITAMINS W/ FOLIC ACID TABLET (FP) PO SCH (10:04)
[2023-06-13] MEDS: THIAMINE HCL 100 MG TABLET (FP) PO SCH (21:05)
[2023-06-13] MEDS: MELATONIN 5 MG TABLETS PO SCH (21:05)
[2023-06-13] MEDS: hydrOXYzine PAMOATE 25 MG CAPSULE (FP) PO PRN (21:05)
[2023-06-14] MEDS: PRENATAL VITAMINS W/ FOLIC ACID TABLET (FP) PO SCH (09:46)
[2023-06-14] MEDS: NICOTINE POLACRILEX 4 MG GUM BUC PRN ×2 (09:47→13:36)
[2023-06-14] MEDS: NICOTINE 21 MG/24 HOURS TOPICAL PATCH TD SCH (09:47)
[2023-06-14] MEDS: THIAMINE HCL 100 MG TABLET (FP) PO SCH (21:25)
[2023-06-14] MEDS: MELATONIN 5 MG TABLETS PO SCH (21:25)
[2023-06-14] MEDS: hydrOXYzine PAMOATE 25 MG CAPSULE (FP) PO PRN (21:25)
[2023-06-15] MEDS: PRENATAL VITAMINS W/ FOLIC ACID TABLET (FP) PO SCH (09:40)
[2023-06-15] MEDS: NICOTINE POLACRILEX 4 MG GUM BUC PRN (09:41)
[2023-06-15] MEDS: NICOTINE 21 MG/24 HOURS TOPICAL PATCH TD SCH (09:41)
[2023-06-15] MEDS: hydrOXYzine PAMOATE 25 MG CAPSULE (FP) PO PRN (21:06)
[2023-06-15] MEDS: THIAMINE HCL 100 MG TABLET (FP) PO SCH (21:07)
[2023-06-15] MEDS: MELATONIN 5 MG TABLETS PO SCH (21:07)
[2023-06-16] MEDS: PRENATAL VITAMINS W/ FOLIC ACID TABLET (FP) PO SCH (10:05)
[2023-06-16] MEDS: NICOTINE POLACRILEX 4 MG GUM BUC PRN (10:06)
[2023-06-16] MEDS: NICOTINE 21 MG/24 HOURS TOPICAL PATCH TD SCH (10:06)
[2023-06-16] MEDS: THIAMINE HCL 100 MG TABLET (FP) PO SCH (21:22)
[2023-06-16] MEDS: hydrOXYzine PAMOATE 25 MG CAPSULE (FP) PO PRN (21:22)
[2023-06-16] MEDS: MELATONIN 5 MG TABLETS PO SCH (21:22)
[2023-06-17] MEDS: PRENATAL VITAMINS W/ FOLIC ACID TABLET (FP) PO SCH (10:05)
[2023-06-17] MEDS: NICOTINE 21 MG/24 HOURS TOPICAL PATCH TD SCH (10:05)
[2023-06-17] MEDS: NICOTINE POLACRILEX 4 MG GUM BUC PRN (10:07)
[2023-06-17] MEDS: MELATONIN 5 MG TABLETS PO SCH (21:09)
[2023-06-17] MEDS: THIAMINE HCL 100 MG TABLET (FP) PO SCH (21:09)
[2023-06-17] MEDS: hydrOXYzine PAMOATE 25 MG CAPSULE (FP) PO PRN (21:09)
[2023-06-18] MEDS: NICOTINE 21 MG/24 HOURS TOPICAL PATCH TD SCH (09:42)
[2023-06-18] MEDS: PRENATAL VITAMINS W/ FOLIC ACID TABLET (FP) PO SCH (09:42)
[2023-06-18] MEDS: NICOTINE POLACRILEX 4 MG GUM BUC PRN (09:43)
[2023-06-18] MEDS: MELATONIN 5 MG TABLETS PO SCH (21:22)
[2023-06-18] MEDS: hydrOXYzine PAMOATE 25 MG CAPSULE (FP) PO PRN (21:22)
[2023-06-18] MEDS: THIAMINE HCL 100 MG TABLET (FP) PO SCH (21:22)
[2023-06-19] MEDS: NICOTINE 21 MG/24 HOURS TOPICAL PATCH TD SCH (10:09)
[2023-06-19] MEDS: NICOTINE POLACRILEX 4 MG GUM BUC PRN ×2 (10:09→16:28)
[2023-06-19] MEDS: PRENATAL VITAMINS W/ FOLIC ACID TABLET (FP) PO SCH (10:09)
[2023-06-19] MEDS: MELATONIN 5 MG TABLETS PO SCH (21:22)
[2023-06-19] MEDS: THIAMINE HCL 100 MG TABLET (FP) PO SCH (21:22)
[2023-06-19] MEDS: hydrOXYzine PAMOATE 25 MG CAPSULE (FP) PO PRN (21:22)
[2023-06-20] MEDS: NICOTINE POLACRILEX 4 MG GUM BUC PRN ×3 (06:08→12:10)
[2023-06-20] MEDS: NICOTINE 21 MG/24 HOURS TOPICAL PATCH TD SCH (09:47)
[2023-06-20] MEDS: PRENATAL VITAMINS W/ FOLIC ACID TABLET (FP) PO SCH (09:47)
[2023-06-20] MEDS: hydrOXYzine PAMOATE 25 MG CAPSULE (FP) PO PRN (21:05)
[2023-06-20] MEDS: THIAMINE HCL 100 MG TABLET (FP) PO SCH (21:05)
[2023-06-20] MEDS: MELATONIN 5 MG TABLETS PO SCH (21:05)
[2023-06-21] MEDS: PRENATAL VITAMINS W/ FOLIC ACID TABLET (FP) PO SCH (09:58)
[2023-06-21] MEDS: NICOTINE 21 MG/24 HOURS TOPICAL PATCH TD SCH (09:59)
[2023-06-21] MEDS: NICOTINE POLACRILEX 4 MG GUM BUC PRN (10:00)
[2023-06-21] MEDS: THIAMINE HCL 100 MG TABLET (FP) PO SCH (21:21)
[2023-06-21] MEDS: MELATONIN 5 MG TABLETS PO SCH (21:21)
[2023-06-21] MEDS: hydrOXYzine PAMOATE 25 MG CAPSULE (FP) PO PRN (21:21)
[2023-06-22] MEDS: NICOTINE POLACRILEX 4 MG GUM BUC PRN ×3 (06:25→21:02)
[2023-06-22] MEDS: PRENATAL VITAMINS W/ FOLIC ACID TABLET (FP) PO SCH (09:50)
[2023-06-22] MEDS: NICOTINE 21 MG/24 HOURS TOPICAL PATCH TD SCH (09:50)
[2023-06-22] MEDS: MELATONIN 5 MG TABLETS PO SCH (21:02)
[2023-06-22] MEDS: THIAMINE HCL 100 MG TABLET (FP) PO SCH (21:02)
[2023-06-22] MEDS: hydrOXYzine PAMOATE 25 MG CAPSULE (FP) PO PRN (21:02)
[2023-06-23] MEDS: NICOTINE POLACRILEX 4 MG GUM BUC PRN ×3 (06:06→21:08)
[2023-06-23] MEDS: PRENATAL VITAMINS W/ FOLIC ACID TABLET (FP) PO SCH (10:23)
[2023-06-23] MEDS: NICOTINE 21 MG/24 HOURS TOPICAL PATCH TD SCH (10:23)
[2023-06-23] MEDS: hydrOXYzine PAMOATE 25 MG CAPSULE (FP) PO PRN (21:07)
[2023-06-23] MEDS: MELATONIN 5 MG TABLETS PO SCH (21:07)
[2023-06-23] MEDS: THIAMINE HCL 100 MG TABLET (FP) PO SCH (21:08)
[2023-06-24] MEDS: NICOTINE POLACRILEX 4 MG GUM BUC PRN ×4 (05:50→21:14)
[2023-06-24] MEDS: PRENATAL VITAMINS W/ FOLIC ACID TABLET (FP) PO SCH (09:39)
[2023-06-24] MEDS: NICOTINE 21 MG/24 HOURS TOPICAL PATCH TD SCH (09:40)
[2023-06-24] MEDS: MELATONIN 5 MG TABLETS PO SCH (21:13)
[2023-06-24] MEDS: hydrOXYzine PAMOATE 25 MG CAPSULE (FP) PO PRN (21:14)
[2023-06-24] MEDS: THIAMINE HCL 100 MG TABLET (FP) PO SCH (21:14)
[2023-06-25] MEDS: NICOTINE POLACRILEX 4 MG GUM BUC PRN ×3 (06:04→21:15)
[2023-06-25] MEDS: NICOTINE 21 MG/24 HOURS TOPICAL PATCH TD SCH (09:37)
[2023-06-25] MEDS: PRENATAL VITAMINS W/ FOLIC ACID TABLET (FP) PO SCH (09:37)
[2023-06-25] MEDS: MELATONIN 5 MG TABLETS PO SCH (21:15)
[2023-06-25] MEDS: THIAMINE HCL 100 MG TABLET (FP) PO SCH (21:15)
[2023-06-25] MEDS: hydrOXYzine PAMOATE 25 MG CAPSULE (FP) PO PRN (21:15)
[2023-06-26] MEDS: NICOTINE POLACRILEX 4 MG GUM BUC PRN ×3 (06:15→21:05)
[2023-06-26] MEDS: PRENATAL VITAMINS W/ FOLIC ACID TABLET (FP) PO SCH (09:55)
[2023-06-26] MEDS: NICOTINE 21 MG/24 HOURS TOPICAL PATCH TD SCH (09:55)
[2023-06-26] MEDS: BACLOFEN 10 MG TABLET (FP) PO SCH ×2 (12:24→21:05)
[2023-06-26] MEDS: THIAMINE HCL 100 MG TABLET (FP) PO SCH (21:04)
[2023-06-26] MEDS: MELATONIN 5 MG TABLETS PO SCH (21:05)
[2023-06-26] MEDS: hydrOXYzine PAMOATE 25 MG CAPSULE (FP) PO PRN (21:05)
[2023-06-27] MEDS: NICOTINE POLACRILEX 4 MG GUM BUC PRN ×3 (05:46→21:17)
[2023-06-27] MEDS: PRENATAL VITAMINS W/ FOLIC ACID TABLET (FP) PO SCH (10:21)
[2023-06-27] MEDS: NICOTINE 21 MG/24 HOURS TOPICAL PATCH TD SCH (10:21)
[2023-06-27] MEDS: BACLOFEN 10 MG TABLET (FP) PO SCH ×2 (10:21→21:17)
[2023-06-27 11:23] LABS: INR 0.9 (0.83-1.09); PROTHROMBIN TIME (PATIENT) 10.4 SEC (9.7-13.0)
[2023-06-27] MEDS: LACTULOSE 20 GM/30 ML UDC (FOR ORAL USE ONLY) PO SCH ×2 (15:03→21:17)
[2023-06-27] MEDS: THIAMINE HCL 100 MG TABLET (FP) PO SCH (21:16)
[2023-06-27] MEDS: hydrOXYzine PAMOATE 25 MG CAPSULE (FP) PO PRN (21:16)
[2023-06-27] MEDS: MELATONIN 5 MG TABLETS PO SCH (21:16)
[2023-06-28] MEDS: LACTULOSE 20 GM/30 ML UDC (FOR ORAL USE ONLY) PO SCH ×3 (06:12→21:31)
[2023-06-28] MEDS: NICOTINE POLACRILEX 4 MG GUM BUC PRN ×4 (06:14→21:33)
[2023-06-28] MEDS: BACLOFEN 10 MG TABLET (FP) PO SCH ×2 (10:02→21:31)
[2023-06-28] MEDS: PRENATAL VITAMINS W/ FOLIC ACID TABLET (FP) PO SCH (10:02)
[2023-06-28] MEDS: NICOTINE 21 MG/24 HOURS TOPICAL PATCH TD SCH (10:02)
[2023-06-28] MEDS: THIAMINE HCL 100 MG TABLET (FP) PO SCH (21:31)
[2023-06-28] MEDS: hydrOXYzine PAMOATE 25 MG CAPSULE (FP) PO PRN (21:31)
[2023-06-28] MEDS: MELATONIN 5 MG TABLETS PO SCH (21:31)
[2023-06-29] MEDS: LACTULOSE 20 GM/30 ML UDC (FOR ORAL USE ONLY) PO SCH ×3 (06:22→21:53)
[2023-06-29] MEDS: PRENATAL VITAMINS W/ FOLIC ACID TABLET (FP) PO SCH (10:23)
[2023-06-29] MEDS: BACLOFEN 10 MG TABLET (FP) PO SCH ×2 (10:23→21:03)
[2023-06-29] MEDS: NICOTINE 21 MG/24 HOURS TOPICAL PATCH TD SCH (10:23)
[2023-06-29] MEDS: NICOTINE POLACRILEX 4 MG GUM BUC PRN ×3 (10:24→21:03)
[2023-06-29] MEDS: THIAMINE HCL 100 MG TABLET (FP) PO SCH (21:03)
[2023-06-29] MEDS: hydrOXYzine PAMOATE 25 MG CAPSULE (FP) PO PRN (21:03)
[2023-06-29] MEDS: MELATONIN 5 MG TABLETS PO SCH (21:03)
[2023-06-30] MEDS: LACTULOSE 20 GM/30 ML UDC (FOR ORAL USE ONLY) PO SCH ×3 (06:06→21:24)
[2023-06-30] MEDS: NICOTINE POLACRILEX 4 MG GUM BUC PRN ×3 (06:06→21:24)
[2023-06-30] MEDS: hydrOXYzine PAMOATE 25 MG CAPSULE (FP) PO PRN ×2 (06:08→21:24)
[2023-06-30] MEDS: BACLOFEN 10 MG TABLET (FP) PO SCH ×2 (10:43→21:24)
[2023-06-30] MEDS: NICOTINE 21 MG/24 HOURS TOPICAL PATCH TD SCH (10:44)
[2023-06-30] MEDS: PRENATAL VITAMINS W/ FOLIC ACID TABLET (FP) PO SCH (10:49)
[2023-06-30] MEDS: MELATONIN 5 MG TABLETS PO SCH (21:24)
[2023-06-30] MEDS: THIAMINE HCL 100 MG TABLET (FP) PO SCH (21:24)
[2023-07-01] MEDS: LACTULOSE 20 GM/30 ML UDC (FOR ORAL USE ONLY) PO SCH ×3 (06:18→21:29)
[2023-07-01] MEDS: hydrOXYzine PAMOATE 25 MG CAPSULE (FP) PO PRN ×2 (06:18→21:30)
[2023-07-01] MEDS: NICOTINE POLACRILEX 4 MG GUM BUC PRN ×4 (06:21→21:30)
[2023-07-01] MEDS: BACLOFEN 10 MG TABLET (FP) PO SCH ×2 (10:00→21:29)
[2023-07-01] MEDS: PRENATAL VITAMINS W/ FOLIC ACID TABLET (FP) PO SCH (10:00)
[2023-07-01] MEDS: NICOTINE 21 MG/24 HOURS TOPICAL PATCH TD SCH (10:00)
[2023-07-01] MEDS: MELATONIN 5 MG TABLETS PO SCH (21:30)
[2023-07-01] MEDS: THIAMINE HCL 100 MG TABLET (FP) PO SCH (21:30)
[2023-07-02] MEDS: LACTULOSE 20 GM/30 ML UDC (FOR ORAL USE ONLY) PO SCH ×3 (06:09→21:15)
[2023-07-02] MEDS: hydrOXYzine PAMOATE 25 MG CAPSULE (FP) PO PRN ×2 (06:09→21:14)
[2023-07-02] MEDS: NICOTINE POLACRILEX 4 MG GUM BUC PRN ×3 (06:11→14:08)
[2023-07-02] MEDS: PRENATAL VITAMINS W/ FOLIC ACID TABLET (FP) PO SCH (10:31)
[2023-07-02] MEDS: BACLOFEN 10 MG TABLET (FP) PO SCH ×2 (10:31→21:14)
[2023-07-02] MEDS: NICOTINE 21 MG/24 HOURS TOPICAL PATCH TD SCH (10:31)
[2023-07-02] MEDS: THIAMINE HCL 100 MG TABLET (FP) PO SCH (21:14)
[2023-07-02] MEDS: MELATONIN 5 MG TABLETS PO SCH (21:14)
[2023-07-03] MEDS: hydrOXYzine PAMOATE 25 MG CAPSULE (FP) PO PRN ×2 (06:06→21:13)
[2023-07-03] MEDS: NICOTINE POLACRILEX 4 MG GUM BUC PRN ×3 (06:07→21:13)
[2023-07-03] MEDS: BACLOFEN 10 MG TABLET (FP) PO SCH ×2 (10:20→21:13)
[2023-07-03] MEDS: PRENATAL VITAMINS W/ FOLIC ACID TABLET (FP) PO SCH (10:20)
[2023-07-03] MEDS: NICOTINE 21 MG/24 HOURS TOPICAL PATCH TD SCH (10:20)
[2023-07-03] MEDS: THIAMINE HCL 100 MG TABLET (FP) PO SCH (21:12)
[2023-07-03] MEDS: MELATONIN 5 MG TABLETS PO SCH (21:13)
[2023-07-04] MEDS: hydrOXYzine PAMOATE 25 MG CAPSULE (FP) PO PRN (06:34)
[2023-07-04] MEDS: NICOTINE POLACRILEX 4 MG GUM BUC PRN ×3 (06:35→21:34)
[2023-07-04] MEDS: BACLOFEN 10 MG TABLET (FP) PO SCH ×2 (10:44→21:34)
[2023-07-04] MEDS: PRENATAL VITAMINS W/ FOLIC ACID TABLET (FP) PO SCH (10:44)
[2023-07-04] MEDS: NICOTINE 21 MG/24 HOURS TOPICAL PATCH TD SCH (10:44)
[2023-07-04] MEDS: THIAMINE HCL 100 MG TABLET (FP) PO SCH (21:33)
[2023-07-04] MEDS: MELATONIN 5 MG TABLETS PO SCH (21:34)
[2023-07-05] MEDS: NICOTINE POLACRILEX 4 MG GUM BUC PRN (05:57)
[2023-07-05 07:17] VITALS: BP 100/53; PULSE 73; RESP 17; TEMP 97.1
== END 2023-07-05 09:24 | disposition home or self-care (01) | DRG 772 ==
LOC: YASAS 15:30 → Y3W 21:18
PROVIDERS: ADMIT Allergy & Immunology; ATTEND Psychiatry & Neurology Pain Medicine
PROC: HZ42ZZZ Group Counseling for Substance Abuse Treatment, Cognitive-Behavioral (ICD-10-PCS; principal; 2023-06-05)
DX: F11.20 Opioid dependence, uncomplicated (principal); F14.20 Cocaine dependence, uncomplicated; F15.20 Other stimulant dependence, uncomplicated; F12.20 Cannabis dependence, uncomplicated; F17.210 Nicotine dependence, cigarettes, uncomplicated; F31.9 Bipolar disorder, unspecified; F19.282 Other psychoactive substance dependence with psychoactive substance-induced sleep disorder; F19.280 Other psychoactive substance dependence with psychoactive substance-induced anxiety disorder; F41.9 Anxiety disorder, unspecified; E72.20 Disorder of urea cycle metabolism, unspecified; L03.113 Cellulitis of right upper limb; L03.114 Cellulitis of left upper limb; L98.8 Other specified disorders of the skin and subcutaneous tissue; B18.2 Chronic viral hepatitis C
CPT/HCPCS: 36415; 82140; 82962; 85610; 87635; J0475

== ENCOUNTER 2023-11-18 09:19 | Inpatient (IN) | payer OTHER ==
[2023-11-18 09:53] VITALS: BMI 22.8
[2023-11-18] MEDS ORDERED: ACETAMINOPHEN 325 MG TABLET (FP) PO PRN (10:45)
[2023-11-18] MEDS ORDERED: BENZOCAINE/MENTHOL (CHLORASEPTIC ) LOZENGE MM PRN (10:45)
[2023-11-18] MEDS ORDERED: POLYETHYLENE GLYCOL (HEALTHYLAX) 3350 17 GM PACKET PO PRN (10:45)
[2023-11-18] MEDS ORDERED: BENZONATATE 200 MG CAPSULE PO PRN (10:45)
[2023-11-18] MEDS ORDERED: NICOTINE POLACRILEX 2 MG LOZENGE BC PRN (10:45)
[2023-11-18] MEDS ORDERED: IBUPROFEN 600 MG TABLET (FP) PO PRN (10:45)
[2023-11-18] MEDS ORDERED: NALOXONE HCL 0.4 MG/ML VIAL IM PRN (10:45)
[2023-11-18] MEDS ORDERED: MAG HYDROX/AL HYDROX/SIMETH 30 ML UNIT-DOSE CUP PO PRN (10:45)
[2023-11-18] MEDS ORDERED: guaiFENesin 600 MG TABLET.ER (FP) PO PRN (10:45)
[2023-11-18] MEDS ORDERED: P-EPHED 60MG/TRIPROLIDI 2.5MG TABLET PO PRN (10:45)
[2023-11-18] MEDS ORDERED: MAGNESIUM HYDROX 2400MG/30ML ORAL SUSPENSION 30 ML CUP PO PRN (10:45)
[2023-11-18] MEDS ORDERED: IBUPROFEN 400 MG TABLET (FP) PO PRN (10:45)
[2023-11-18] MEDS ORDERED: LOPERAMIDE HCL 2 MG CAPSULE PO PRN (10:45)
[2023-11-18] MEDS ORDERED: NALOXONE (NARCAN) HCL 4 MG/0.1 ML SPRAY NS PRN (10:45)
[2023-11-18] MEDS ORDERED: methaDONE HCL 40 MG DISPERSABLE TABLET PO SCH (13:00)
[2023-11-18] MEDS: methaDONE 80 MG, methaDONE 20 MG PO ONE (13:03)
[2023-11-18] MEDS ORDERED: DOCUSATE SODIUM 100 MG CAPSULE (FP) PO PRN (22:00)
[2023-11-18] MEDS: THIAMINE 100 MG TABLET PO SCH (22:24)
[2023-11-18] MEDS: MELATONIN 5 MG TABLETS PO SCH (22:24)
[2023-11-19] MEDS: methaDONE 80 MG, methaDONE 20 MG PO SCH (05:30)
[2023-11-19] MEDS: PRENATAL VITAMINS W/ FOLIC ACID TABLET (FP) PO SCH (09:13)
[2023-11-19 12:21] LABS: PH,URINE 6.5 (5.0-8.0); URINE APPEARANCE CLEAR; URINE BILIRUBIN NEGATIVE (NEGATIVE); URINE COLOR YELLOW; URINE GLUCOSE (UA) NEGATIVE (NEGATIVE); URINE KETONE NEGATIVE (NEGATIVE); URINE LEUK ESTERASE NEGATIVE (NEGATIVE); URINE NITRITE NEGATIVE (NEGATIVE); URINE PROTEIN NEGATIVE (NEGATIVE)
[2023-11-20] MEDS: cloNIDine HCL 0.1 MG TABLET PO ONE (06:15)
[2023-11-20 12:42] LABS: HEMATOCRIT 37.6 % (35.4-49); HEMOGLOBIN 12.5 GM/dL (11.7-16.9); MCH 27.5 pg (25.7-33.7); MCHC 33.4 g/dl (32.0-35.9); MEAN CELL VOLUME 82.3 fl (80-96); PLATELET COUNT 181 10^3/uL (134-434); RBC 4.56 M/mm3 (4.00-5.60); RDW 13.8 % (11.9-15.9); WHITE BLOOD COUNT 5.9 K/mm3 (4.0-10.0)
[2023-11-20 12:53] LABS: POTASSIUM 3.4 mmol/L (3.5-5.1)
[2023-11-20 13:03] LABS: BLOOD UREA NITROGEN 7.2 mg/dL (7-18)
[2023-11-20 13:04] LABS: ALBUMIN 3.7 g/dl (3.4-5.0)
[2023-11-20 13:07] LABS: CREATININE 0.9 mg/dL (0.55-1.3)
[2023-11-20 13:08] LABS: BILIRUBIN,TOTAL 0.7 mg/dL (0.2-1); TOT PROT 6.4 g/dl (6.4-8.2)
[2023-11-20] MEDS: cloNIDine HCL 0.1 MG TABLET PO PRN (14:53)
[2023-11-20 17:58] LABS: SYPHILIS W/ RPR CONF NON-REACTIVE (NONREACTIVE)
[2023-11-21] MEDS: POTASSIUM CHLORIDE TABS 20 MEQ TABLET.ER (FP) PO SCH (12:16)
[2023-11-21] MEDS: NICOTINE POLACRILEX 2 MG GUM BUC PRN (12:17)
[2023-11-21] MEDS: methaDONE HCL 40 MG DISPERSABLE TABLET PO ONE (15:02)
[2023-11-21] MEDS: methaDONE HCL 10 MG TABLET PO ONE (15:05)
[2023-11-22] MEDS ORDERED: methaDONE HCL 40 MG DISPERSABLE TABLET PO SCH (06:00)
[2023-11-22] MEDS: LACTULOSE 20 GM/30 ML UDC (FOR ORAL USE ONLY) PO PRN (21:09)
[2023-11-23] MEDS: methaDONE HCL 40 MG DISPERSABLE TABLET PO SCH (06:07)
[2023-11-23] MEDS: DOCUSATE SODIUM 100 MG CAPSULE (FP) PO PRN (09:54)
[2023-11-29] MEDS: methaDONE HCL 40 MG DISPERSABLE TABLET PO SCH (09:21)
[2023-12-04 06:54] VITALS: TEMP 97.7
[2023-12-04 09:15] VITALS: BP 114/75; PULSE 80; RESP 18
== END 2023-12-04 09:19 | disposition home or self-care (01) | DRG 772 ==
LOC: YASAS 09:19 → Y3NR 11:33 → Y3W 11-19 11:12
PROVIDERS: ADMIT Allergy & Immunology; ATTEND Psychiatry & Neurology Pain Medicine
PROC: HZ42ZZZ Group Counseling for Substance Abuse Treatment, Cognitive-Behavioral (ICD-10-PCS; principal; 2023-11-18)
DX: F11.20 Opioid dependence, uncomplicated (principal); F14.20 Cocaine dependence, uncomplicated; F10.20 Alcohol dependence, uncomplicated; F12.20 Cannabis dependence, uncomplicated; F17.210 Nicotine dependence, cigarettes, uncomplicated; F19.282 Other psychoactive substance dependence with psychoactive substance-induced sleep disorder; F31.9 Bipolar disorder, unspecified; F41.9 Anxiety disorder, unspecified; E87.6 Hypokalemia; I10 Essential (primary) hypertension; K59.00 Constipation, unspecified
CPT/HCPCS: 36415; 80053; 80305; 80307; 81003; 83036; 85027; 86780; 86803; 87522; 87811